=== PATIENT | female | born 1940 | race Caucasian/White ===

== ENCOUNTER 2019-01-26 09:47 | Inpatient (IN) | payer MEDICARE, OTHER ==
[~2019-01-26] VITALS: Ht 160 cm; Wt 79.1 kg
[~2019-01-26 09:47] MED LIST: ASCO500C15 PO; CARV-50 PO; DOCU100C40 PO; FAMO20TA8 PO; HYDR-3973 PO; LACT1CAP26 PO; LANTUS SQ; LISI-600 PO; NOVOLOG; PHEN-716 PO; SITA50TA PO
[2019-01-26] MEDS ORDERED: normal saline 1000ML IV soln IVB ONE (10:15)
[2019-01-26 10:45] LABS: BASOPHILS # (AUTO) 0.1 X10'3 (0-0.2); BASOPHILS % (AUTO) 1.2 % (0-1); EOSINOPHILS # (AUTO) 0.1 X10'3 (0-0.9); EOSINOPHILS % (AUTO) 1.1 % (0-6); HEMATOCRIT 38.1 % (35.0-45.0); HEMOGLOBIN 12.8 g/dl (12.0-16.0); LYMPHOCYTES # (AUTO) 1.6 X10'3 (1.1-4.8); LYMPHOCYTES % (AUTO) 19.4 % (21-51); MEAN CORPUSCULAR HEMOGLOBIN 29.2 PG (27.0-31.0); MEAN CORPUSCULAR HGB CONC 33.5 g/dL (33.0-36.5); MEAN CORPUSCULAR VOLUME 87.1 FL (78-98); MEAN PLATELET VOLUME 9.6 FL (7.4-10.4); MONOCYTES # (AUTO) 0.6 X10'3 (0-0.9); MONOCYTES % (AUTO) 7.4 % (2-12); NEUTROPHILS # (AUTO) 5.8 X10'3 (1.8-7.7); NEUTROPHILS % (AUTO) 70.9 % (42-75); PLATELET COUNT 316 X10'3 (140-440); RED BLOOD COUNT 4.38 X10'6 (4.20-5.60); RED CELL DISTRIBUTION WIDTH 14.1 % (11.5-14.5); WHITE BLOOD COUNT 8.2 X10'3 (4.5-11.0)
[2019-01-26 10:58] LABS: ALANINE AMINOTRANSFERASE 25 U/L (12-78); ALBUMIN 3.8 G/DL (3.4-5.0); ALKALINE PHOSPHATASE 53 IU/L (46-116); ANION GAP 11 (8-16); ASPARTATE AMINO TRANSFERASE 21 U/L (10-37); BILIRUBIN,TOTAL 0.5 MG/DL (0.1-1.0); BLOOD UREA NITROGEN 30 MG/DL (7-18); BUN/CREATININE RATIO 15.5 (6.6-38.0); CHLORIDE 99 MMOL/L (99-107); CREATININE 1.93 MG/DL (0.40-0.90); GLUCOSE 264 MG/DL (70-104); MAGNESIUM 1.7 MG/DL (1.5-2.4); PHOSPHORUS 3.8 MG/DL (2.3-4.5); POTASSIUM 4.2 MMOL/L (3.5-5.1); SODIUM 136 MMOL/L (135-145); TOTAL CARBON DIOXIDE 26.2 MMOL/L (24-32); TOTAL PROTEIN 7.6 G/DL (6.4-8.2); eGFR 25 ML/MIN
[2019-01-26 11:16] LABS: CLARITY,URINE CLOUDY (Clear); COLOR,URINE YELLOW (Yellow); GLUCOSE, URINE NEGATIVE (Neg); KETONES,URINE TRACE mg/dl (Neg); LEUKOCYTE ESTERASE ,URINE LARGE (Neg); NITRITES, URINE NEGATIVE (Neg); OCCULT BLOOD,URINE NEGATIVE (Neg); PROTEIN,URINE 30 mg/dl (Neg); UROBILINOGEN,URINE 0.2 E.U/dL (0.2-1.0)
[2019-01-26 11:17] LABS: UA COLLECTION TYPE CLN CATCH MIDSTREAM
[2019-01-26] MEDS ORDERED: aspirin 325mg tablet PO ONE (11:30)
[2019-01-26 11:38] LABS: WBC,URINE 30-50 /HPF (0-4)
[2019-01-26 11:39] LABS: RBC,URINE 0-2 /HPF (0-2)
[2019-01-26 11:40] LABS: SQUAMOUS EPITHELIAL CELL,UR MANY /LPF (FEW); WBC CLUMPS,URINE MODERATE /HPF (NEGATIVE)
[2019-01-26 11:43] LABS: MUCUS STRANDS NONE SEEN /LPF (Neg)
[2019-01-26] MEDS ORDERED: INSU100I31 PO (11:45)
[2019-01-26] MEDS ORDERED: ATOR20TA PO (11:45)
[2019-01-26] MEDS ORDERED: ASPI-1265 PO (11:45)
[2019-01-26] MEDS ORDERED: LISI40TA4 PO (11:45)
[2019-01-26] MEDS ORDERED: INSU100V13 SQ (11:45)
[2019-01-26] MEDS ORDERED: HYDR12.5 PO (11:45)
[2019-01-26 11:46] LABS: AMORPHOUS URATES 1+; TRANSITIONAL EPI CELLS,URINE MODERATE /HPF
[2019-01-26 11:47] LABS: BACTERIA,URINE 3+ /HPF (Neg)
[2019-01-26] MEDS ORDERED: acetaminophen 325mg tablet PO PRN ×2 (11:50)
[2019-01-26] MEDS ORDERED: potassium Cl 20 mEq SR tablet PO PRN ×2 (11:50)
[2019-01-26] MEDS ORDERED: magnesium 2GM in 50ml NS 50 ML IV PRN (11:50)
[2019-01-26] MEDS ORDERED: potassium Cl 40MEQ/NS 500ml 500 ML IV PRN ×2 (11:50)
[2019-01-26] MEDS ORDERED: ondansetron/PF 4mg/2ml inj IV PRN (11:50)
[2019-01-26] MEDS ORDERED: magnesium 4gm in 100ml NS 100 ML IV PRN (11:50)
[2019-01-26] MEDS ORDERED: CefTRIAXone/D5W-Rocephin 1gm 50 ML IV ONE (11:50)
[2019-01-26] MEDS ORDERED: magnesium Cl slow-release 64mg tablet PO PRN (11:50)
[2019-01-26] MEDS ORDERED: magnesium hydroxide 30ml (MOM) UD suspension PO PRN (11:50)
[2019-01-26] MEDS ORDERED: mag hydrox/Alum hydrox/simeth 30ml oral suspension PO PRN (11:50)
[2019-01-26] MEDS: K and/or MAG REPLACEMENT MC SCH (12:05)
[2019-01-26] MEDS: normal saline 1000ml 1,000 ML IV SCH ×2 (12:17→21:48)
--- NOTE | 2019-01-26 14:20 | NUR ---
Attempted to call report on to RN taking patient. Nurse has not yet been assigned to the pt, and they state they will return a call as soon as they are able.
[2019-01-26 15:00] VITALS: BP 137/63
[2019-01-26 18:00] VITALS: BP 138/63
[2019-01-26] MEDS ORDERED: glucagon, human recombinant 1mg kit SUBCUT PRN (18:15)
[2019-01-26] MEDS ORDERED: dextrose 50%-water 50ml dispensing syringe IV PRN ×2 (18:15)
[2019-01-26] MEDS ORDERED: MESSAGE TO PHARMACY PO ONE (18:15)
[2019-01-26] MEDS ORDERED: dextrose ORAL solution 15 GM/59 ML bottle PO PRN ×2 (18:15)
--- NOTE | 2019-01-26 18:40 | NUR ---
Report to Shaniqua KUMARI
[2019-01-26] MEDS ORDERED: insulin glargine (Lantus) pen - multi-dose SQ SCH (21:00)
[2019-01-26] MEDS ORDERED: temazepam 15mg capsule PO PRN (21:00)
[2019-01-26] MEDS: insulin glargine (Lantus) pen - multi-dose SQ SCH (21:01)
[2019-01-26] MEDS: insulin Lispro (HumaLOG) vial - multi-dose SQ SCH (21:03)
[2019-01-26 21:12] LABS: CLARITY,URINE SLIGHTLY CLOUDY (Clear); COLOR,URINE YELLOW (Yellow); GLUCOSE, URINE NEGATIVE (Neg); KETONES,URINE NEGATIVE (Neg); LEUKOCYTE ESTERASE ,URINE SMALL (Neg); NITRITES, URINE NEGATIVE (Neg); OCCULT BLOOD,URINE NEGATIVE (Neg); PH,URINE 5.5 (4.8-8.0); PROTEIN,URINE NEGATIVE (Neg); UROBILINOGEN,URINE 0.2 E.U/dL (0.2-1.0)
[2019-01-26 21:13] LABS: UA COLLECTION TYPE VOIDED
[2019-01-26 21:18] LABS: BACTERIA,URINE 4+ /HPF (Neg); SQUAMOUS EPITHELIAL CELL,UR MODERATE /LPF (FEW)
[2019-01-26 21:19] LABS: RBC,URINE 0-2 /HPF (0-2)
[2019-01-26 22:00] VITALS: BP_SYST 129; BP_SYST 132; BP_SYST 146; BP_DIAS 52; BP_DIAS 67
[2019-01-27] VITALS (7 sets, daily range): BP systolic 114–159; BP diastolic 50–72
[2019-01-27] MEDS: normal saline 1000ml 1,000 ML IV SCH ×2 (03:59→16:58)
[2019-01-27 05:45] LABS: HEMATOCRIT 33.5 % (35.0-45.0); HEMOGLOBIN 11.3 g/dl (12.0-16.0); MEAN CORPUSCULAR HEMOGLOBIN 29.5 PG (27.0-31.0); MEAN CORPUSCULAR HGB CONC 33.7 g/dL (33.0-36.5); MEAN CORPUSCULAR VOLUME 87.7 FL (78-98); MEAN PLATELET VOLUME 9.6 FL (7.4-10.4); PLATELET COUNT 244 X10'3 (140-440); RED BLOOD COUNT 3.82 X10'6 (4.20-5.60); RED CELL DISTRIBUTION WIDTH 14.1 % (11.5-14.5); WHITE BLOOD COUNT 6.7 X10'3 (4.5-11.0)
[2019-01-27 05:52] LABS: ALBUMIN 3.2 G/DL (3.4-5.0); ANION GAP 6 (8-16); BLOOD UREA NITROGEN 33 MG/DL (7-18); BUN/CREATININE RATIO 21.9 (6.6-38.0); CALCIUM 9.3 MG/DL (8.5-10.1); CHLORIDE 107 MMOL/L (99-107); CHOL/HDL RATIO 2.7 (0.00-4.99); CHOLESTEROL 126 MG/DL (0-200); CREATININE 1.51 MG/DL (0.40-0.90); GLUCOSE 110 MG/DL (70-104); HDL CHOLESTEROL 47 MG/DL (35-60); LDL CHOLESTEROL 70 MG/DL (50-100); MAGNESIUM 1.6 MG/DL (1.5-2.4); PHOSPHORUS 3.8 MG/DL (2.3-4.5); POTASSIUM 3.9 MMOL/L (3.5-5.1); SODIUM 140 MMOL/L (135-145); TOTAL CARBON DIOXIDE 26.6 MMOL/L (24-32); TRIGLYCERIDES 116 MG/DL (20-135); eGFR 33 ML/MIN
--- NOTE | 2019-01-27 07:04 | NUR ---
Patient in room ORTHO 4024. I have received report from Shaniqua KUMARI and had the opportunity to ask questions and assume patient care.
[2019-01-27] MEDS ORDERED: insulin Lispro (HumaLOG) vial - multi-dose SQ SCH (08:00)
[2019-01-27] MEDS: K and/or MAG REPLACEMENT MC SCH (08:00)
[2019-01-27] MEDS ORDERED: INSULIN ASPART 4 UNIT SQ SCH (08:00)
[2019-01-27] MEDS: insulin Lispro (HumaLOG) vial - multi-dose SQ SCH (08:54)
[2019-01-27] MEDS: CefTRIAXone/D5W-Rocephin 1gm 50 ML IV SCH (08:57)
[2019-01-27] MEDS: aspirin 325mg tablet PO SCH (08:57)
[2019-01-27] MEDS: atorvastatin 20mg tablet PO SCH (08:57)
--- NOTE | 2019-01-27 12:23 | NUR ---
DM Consult: Pt admit w/ dizziness hx T2DM A1C 9.1. Pt unable to wake during RD visit; written DM ed w/ RD contact information left at bedside. Pt PO 100% carb controlled/heart healthy meals meeting needs. No BM yet this admit. Will continue to monitor. Rec: 1. continue carb controlled/heart healthy diet 2. wt per rx Addendum: 01/27/19 at [address] Amended: Links added.
--- NOTE | 2019-01-27 18:30 | NUR ---
Problems reprioritized. Patient report given, questions answered & plan of care reviewed with Shaniqua KUMARI.
[2019-01-27] MEDS: lactobacillus rhamnosus 10,000 MMU CELLS/CAPSULE PO SCH (19:50)
[2019-01-27] MEDS: insulin glargine (Lantus) pen - multi-dose SQ SCH (21:49)
[2019-01-27] MEDS ORDERED: Melatonin 3mg tablet PO PRN (22:00)
--- NOTE | 2019-01-27 23:12 | NUR ---
pt requested sleep aid. pt refused to try christina louie ordered melatonin. pt agreed to try.
[2019-01-28 02:03] VITALS: BP 154/72
[2019-01-28] MEDS: normal saline 1000ml 1,000 ML IV SCH (03:04)
[2019-01-28 05:54] LABS: HEMATOCRIT 34.1 % (35.0-45.0); HEMOGLOBIN 11.2 g/dl (12.0-16.0); MEAN CORPUSCULAR HEMOGLOBIN 29.1 PG (27.0-31.0); MEAN CORPUSCULAR HGB CONC 32.9 g/dL (33.0-36.5); MEAN CORPUSCULAR VOLUME 88.5 FL (78-98); MEAN PLATELET VOLUME 9.7 FL (7.4-10.4); PLATELET COUNT 258 X10'3 (140-440); RED BLOOD COUNT 3.86 X10'6 (4.20-5.60); RED CELL DISTRIBUTION WIDTH 14.2 % (11.5-14.5); WHITE BLOOD COUNT 7.2 X10'3 (4.5-11.0)
--- NOTE | 2019-01-28 05:55 | NUR ---
reported to days. noted pt anticipates discharge today. will need restart of BP meds.
[2019-01-28 05:58] LABS: ALBUMIN 3.3 G/DL (3.4-5.0); ANION GAP 7 (8-16); BLOOD UREA NITROGEN 32 MG/DL (7-18); BUN/CREATININE RATIO 26.9 (6.6-38.0); CHLORIDE 109 MMOL/L (99-107); CREATININE 1.19 MG/DL (0.40-0.90); GLUCOSE 114 MG/DL (70-104); MAGNESIUM 1.6 MG/DL (1.5-2.4); PHOSPHORUS 3.4 MG/DL (2.3-4.5); POTASSIUM 4.4 MMOL/L (3.5-5.1); SODIUM 143 MMOL/L (135-145); TOTAL CARBON DIOXIDE 26.8 MMOL/L (24-32); eGFR 44 ML/MIN
[2019-01-28 06:00] VITALS: BP 154/72
--- NOTE | 2019-01-28 06:20 | NUR ---
Patient in room ORTHO 4024. I have received report from Shaniqua KUMARI and had the opportunity to ask questions and assume patient care.
[2019-01-28] MEDS: lactobacillus rhamnosus 10,000 MMU CELLS/CAPSULE PO SCH (07:33)
[2019-01-28] MEDS: aspirin 325mg tablet PO SCH (07:33)
[2019-01-28] MEDS: CefTRIAXone/D5W-Rocephin 1gm 50 ML IV SCH (07:33)
[2019-01-28] MEDS: atorvastatin 20mg tablet PO SCH (07:33)
[2019-01-28 08:00] VITALS: BP_SYST 137; BP_SYST 146; BP_SYST 155; BP_SYST 166; BP_DIAS 50; BP_DIAS 59; BP_DIAS 61; BP_DIAS 79
[2019-01-28] MEDS: K and/or MAG REPLACEMENT MC SCH (08:00)
[2019-01-28] MEDS ORDERED: MELA3TAB PO (09:21)
[2019-01-28] MEDS ORDERED: CEFD300C3 PO (09:21)
[2019-01-28] MEDS ORDERED: LACT1CAP26 PO (09:21)
[2019-01-28] MEDS ORDERED: ATOR20TA66 PO (09:21)
[2019-01-28 10:00] VITALS: BP 155/59
[2019-01-28] MEDS ORDERED: ASPI1CPM9 PO (10:53)
--- NOTE | 2019-01-28 12:00 | NUR ---
Patient stable for discharge home today. All discharge instructions given to patient and new prescriptions called into [facility].
== END 2019-01-28 12:00 | disposition home health service (06) | DRG 64 ==
LOC: ER 09:47 → ED HOLD 11:48 → ORTHO 4S 15:20 → OBSVTOIN 19:02
PROVIDERS: ADMIT Family Medicine; ATTEND Family Medicine
DX: I63.9 Cerebral infarction, unspecified (principal); N17.0 Acute kidney failure with tubular necrosis; N39.0 Urinary tract infection, site not specified; E11.22 Type 2 diabetes mellitus with diabetic chronic kidney disease; E11.65 Type 2 diabetes mellitus with hyperglycemia; I12.9 Hypertensive chronic kidney disease with stage 1 through stage 4 chronic kidney disease, or unspecified chronic kidney disease; E78.5 Hyperlipidemia, unspecified; I25.10 Atherosclerotic heart disease of native coronary artery without angina pectoris; M54.30 Sciatica, unspecified side; M21.371 Foot drop, right foot; N18.9 Chronic kidney disease, unspecified; Z90.710 Acquired absence of both cervix and uterus; Z95.1 Presence of aortocoronary bypass graft; I25.2 Old myocardial infarction; Z79.82 Long term (current) use of aspirin; Z79.4 Long term (current) use of insulin; Z79.899 Other long term (current) drug therapy
CPT/HCPCS: 36415; 70450; 70544; 70551; 71045; 80048; 80053; 80061; 81001; 82948; 83036; 83735; 84100; 84484; 85025; 85027; 85610; 87070; 87088; 93005; 93306; 93880; 96365; 97110; 97116; 97161; 97530; 99285; G0378; J0696; J1815; J7030

== ENCOUNTER 2019-02-09 02:06 | Emergency (ER) | payer MEDICARE, OTHER ==
[~2019-02-09] VITALS: Ht 160 cm; Wt 78.2 kg
[~2019-02-09 02:06] MED LIST changes: -ASCO500C15 PO; +ASPI1CPM9 PO; +ATOR20TA66 PO; -DOCU100C40 PO; -FAMO20TA8 PO; -HYDR-3973 PO; +HYDR12.5 PO; +INSU100I31 PO; +INSU100V13 SQ; -LANTUS SQ; -LISI-600 PO; +LISI40TA4 PO; +MELA3TAB PO; -NOVOLOG; -PHEN-716 PO
[2019-02-09] MEDS ORDERED: TRAM50TA2 PO (02:32)
[2019-02-09] MEDS ORDERED: HYDROcodone/acetaminophen 5mg/325mg tablet PO ONE (02:35)
[2019-02-09 03:31] VITALS: BP 142/67
== END 2019-02-09 03:37 | disposition home or self-care (01) ==
LOC: ER 02:06
DX: M79.651 Pain in right thigh (principal); I25.10 Atherosclerotic heart disease of native coronary artery without angina pectoris; I25.2 Old myocardial infarction; E11.9 Type 2 diabetes mellitus without complications; Z90.710 Acquired absence of both cervix and uterus; Z95.1 Presence of aortocoronary bypass graft; Z79.82 Long term (current) use of aspirin; Z79.4 Long term (current) use of insulin; W01.0XXA Fall on same level from slipping, tripping and stumbling without subsequent striking against object, initial encounter; Y93.89 Activity, other specified; Y92.89 Other specified places as the place of occurrence of the external cause; Y99.8 Other external cause status
CPT/HCPCS: 99283

== ENCOUNTER 2019-02-24 20:45 | Inpatient (IN) | payer MEDICARE, OTHER | END 2019-02-26 13:13 | disposition home or self-care (01) | LOC: ER 20:45 → ORTHO 4S 02-25 03:13 | DX: N17.9 Acute kidney failure, unspecified (principal); N39.0 Urinary tract infection, site not specified; Z86.73 Personal history of transient ischemic attack (TIA), and cerebral infarction without residual deficits ==

== ENCOUNTER 2019-03-08 20:39 | Emergency (ER) | payer MEDICARE, OTHER ==
[~2019-03-08] VITALS: Ht 160 cm; Wt 75.0 kg
[~2019-03-08 20:39] MED LIST changes: -ASPI1CPM9 PO; +CEFD300C3 PO; +TRAM50TA2 PO
[2019-03-08 22:35] LABS: CLARITY,URINE CLEAR (Clear); COLOR,URINE YELLOW (Yellow); GLUCOSE, URINE 100 mg/dl (Neg); KETONES,URINE NEGATIVE (Neg); LEUKOCYTE ESTERASE ,URINE TRACE (Neg); NITRITES, URINE NEGATIVE (Neg); OCCULT BLOOD,URINE NEGATIVE (Neg); PH,URINE 5.5 (4.8-8.0); PROTEIN,URINE NEGATIVE (Neg); UROBILINOGEN,URINE 0.2 E.U/dL (0.2-1.0)
[2019-03-08 22:39] LABS: UA COLLECTION TYPE STRAIGHT CATH
[2019-03-08 22:44] LABS: BACTERIA,URINE NONE SEEN /HPF (Neg); RBC,URINE 0-2 /HPF (0-2); SQUAMOUS EPITHELIAL CELL,UR FEW /LPF (FEW); WBC CLUMPS,URINE FEW /HPF (NEGATIVE)
[2019-03-08 23:13] VITALS: BP 148/85
[2019-03-08] MEDS ORDERED: CIPR-259 PO (23:17)
== END 2019-03-08 23:38 | disposition home or self-care (01) ==
LOC: ER 20:40
DX: R33.9 Retention of urine, unspecified (principal); N39.0 Urinary tract infection, site not specified; I25.10 Atherosclerotic heart disease of native coronary artery without angina pectoris; I25.2 Old myocardial infarction; E11.9 Type 2 diabetes mellitus without complications; Z95.1 Presence of aortocoronary bypass graft; Z90.710 Acquired absence of both cervix and uterus; Z98.890 Other specified postprocedural states; Z79.899 Other long term (current) drug therapy; Z79.4 Long term (current) use of insulin
CPT/HCPCS: 51702; 81001; 87077; 87088; 87186; 99284

== ENCOUNTER 2019-03-10 20:20 | Emergency (ER) | payer MEDICARE, OTHER ==
[~2019-03-10] VITALS: Ht 160 cm; Wt 69.0 kg
[~2019-03-10 20:20] MED LIST changes: +CIPR-259 PO
--- NOTE | 2019-03-10 21:07 | NUR ---
PT OFFERED WARM BLANKET PT DENIED BLANKET AT THIS TIME.
[2019-03-10] MEDS ORDERED: normal saline 1000ml 1,000 ML IV ONE (21:45)
[2019-03-10 22:05] LABS: BASOPHILS # (AUTO) 0.1 X10'3 (0-0.2); BASOPHILS % (AUTO) 0.8 % (0-1); EOSINOPHILS # (AUTO) 0.1 X10'3 (0-0.9); EOSINOPHILS % (AUTO) 1.6 % (0-6); HEMATOCRIT 32.7 % (35.0-45.0); HEMOGLOBIN 11.1 g/dl (12.0-16.0); LYMPHOCYTES # (AUTO) 2.3 X10'3 (1.1-4.8); LYMPHOCYTES % (AUTO) 24.4 % (21-51); MEAN CORPUSCULAR HEMOGLOBIN 30.2 PG (27.0-31.0); MEAN CORPUSCULAR VOLUME 88.7 FL (78-98); MONOCYTES # (AUTO) 0.8 X10'3 (0-0.9); MONOCYTES % (AUTO) 8.9 % (2-12); NEUTROPHILS % (AUTO) 64.3 % (42-75); PLATELET COUNT 247 X10'3 (140-440); RED BLOOD COUNT 3.68 X10'6 (4.20-5.60); RED CELL DISTRIBUTION WIDTH 14.2 % (11.5-14.5); WHITE BLOOD COUNT 9.3 X10'3 (4.5-11.0)
[2019-03-10 22:18] LABS: ALANINE AMINOTRANSFERASE 24 U/L (12-78); ALBUMIN 3.6 G/DL (3.4-5.0); ALBUMIN/GLOBULIN RATIO 1.1 (1.1-1.5); ALKALINE PHOSPHATASE 56 IU/L (46-116); ANION GAP 6 (8-16); ASPARTATE AMINO TRANSFERASE 18 U/L (10-37); BILIRUBIN,TOTAL 0.3 MG/DL (0.1-1.0); BLOOD UREA NITROGEN 23 MG/DL (7-18); BUN/CREATININE RATIO 13.8 (6.6-38.0); CALCIUM 9.8 MG/DL (8.5-10.1); CHLORIDE 94 MMOL/L (99-107); CREATININE 1.67 MG/DL (0.40-0.90); GLUCOSE 175 MG/DL (70-104); POTASSIUM 4.5 MMOL/L (3.5-5.1); SODIUM 127 MMOL/L (135-145); TOTAL CARBON DIOXIDE 27.3 MMOL/L (24-32); TOTAL PROTEIN 6.9 G/DL (6.4-8.2); eGFR 30 ML/MIN
[2019-03-10 22:27] LABS: CLARITY,URINE CLEAR (Clear); COLOR,URINE YELLOW (Yellow); GLUCOSE, URINE NEGATIVE (Neg); KETONES,URINE NEGATIVE (Neg); LEUKOCYTE ESTERASE ,URINE NEGATIVE (Neg); NITRITES, URINE NEGATIVE (Neg); OCCULT BLOOD,URINE NEGATIVE (Neg); PROTEIN,URINE NEGATIVE (Neg); UROBILINOGEN,URINE 0.2 E.U/dL (0.2-1.0)
[2019-03-10 22:39] LABS: UA COLLECTION TYPE OTHER
[2019-03-10 23:36] VITALS: BP 144/89
== END 2019-03-10 23:37 | disposition home or self-care (01) ==
LOC: ER 20:20
DX: E86.0 Dehydration (principal); R33.9 Retention of urine, unspecified; I25.10 Atherosclerotic heart disease of native coronary artery without angina pectoris; I25.2 Old myocardial infarction; E11.9 Type 2 diabetes mellitus without complications; Z95.1 Presence of aortocoronary bypass graft; Z90.710 Acquired absence of both cervix and uterus; Z98.890 Other specified postprocedural states; Z79.4 Long term (current) use of insulin; Z79.899 Other long term (current) drug therapy
CPT/HCPCS: 36415; 80053; 81003; 85025; 99284; J7030; P9612

== ENCOUNTER 2019-04-18 21:23 | Emergency (ER) | payer MEDICARE, OTHER ==
[~2019-04-18] VITALS: Ht 160 cm; Wt 63.3 kg
[~2019-04-18 21:23] MED LIST changes: -CEFD300C3 PO; -CIPR-259 PO; -TRAM50TA2 PO
[2019-04-18 22:37] VITALS: BP 183/81
[2019-04-18 23:39] LABS: CLARITY,URINE SLIGHTLY CLOUDY (Clear); COLOR,URINE YELLOW (Yellow); GLUCOSE, URINE NEGATIVE (Neg); KETONES,URINE NEGATIVE (Neg); LEUKOCYTE ESTERASE ,URINE LARGE (Neg); NITRITES, URINE NEGATIVE (Neg); OCCULT BLOOD,URINE NEGATIVE (Neg); PH,URINE 6.5 (4.8-8.0); PROTEIN,URINE NEGATIVE (Neg); UROBILINOGEN,URINE 0.2 E.U/dL (0.2-1.0)
[2019-04-18 23:44] LABS: UA COLLECTION TYPE CLN CATCH MIDSTREAM
[2019-04-18 23:45] LABS: BACTERIA,URINE FEW /HPF (Neg); RBC,URINE NONE SEEN /HPF (0-2); RENAL CELLS, URINE FEW /HPF; SQUAMOUS EPITHELIAL CELL,UR FEW /LPF (FEW)
[2019-04-19] MEDS ORDERED: NITR100C6 PO (00:02)
== END 2019-04-19 00:11 | disposition home or self-care (01) ==
LOC: ER 21:23
DX: N39.0 Urinary tract infection, site not specified (principal); I25.10 Atherosclerotic heart disease of native coronary artery without angina pectoris; I25.2 Old myocardial infarction; E11.9 Type 2 diabetes mellitus without complications; Z79.4 Long term (current) use of insulin; Z79.899 Other long term (current) drug therapy; Z86.73 Personal history of transient ischemic attack (TIA), and cerebral infarction without residual deficits; Z90.710 Acquired absence of both cervix and uterus; Z95.1 Presence of aortocoronary bypass graft; Z98.890 Other specified postprocedural states
CPT/HCPCS: 81001; 87088; 99284

== ENCOUNTER 2020-02-10 12:49 | Emergency (ER) | payer MEDICARE, OTHER ==
[~2020-02-10] VITALS: Ht 165.1 cm; Wt 81.7 kg
[~2020-02-10 12:49] MED LIST changes: -MELA3TAB PO; +MELA3TAB39 PO; +NITR100C6 PO
[2020-02-10 14:12] LABS: BASOPHILS # (AUTO) 0.1 X10'3 (0-0.2); EOSINOPHILS # (AUTO) 0.1 X10'3 (0-0.9); EOSINOPHILS % (AUTO) 1.4 % (0-6); HEMATOCRIT 34.1 % (35.0-45.0); HEMOGLOBIN 11.6 g/dl (12.0-16.0); LYMPHOCYTES # (AUTO) 1.5 X10'3 (1.1-4.8); LYMPHOCYTES % (AUTO) 14.5 % (21-51); MEAN CORPUSCULAR HEMOGLOBIN 29.7 PG (27.0-31.0); MEAN CORPUSCULAR VOLUME 87.5 FL (78-98); MEAN PLATELET VOLUME 10.2 FL (7.4-10.4); MONOCYTES # (AUTO) 0.8 X10'3 (0-0.9); MONOCYTES % (AUTO) 7.7 % (2-12); NEUTROPHILS # (AUTO) 7.5 X10'3 (1.8-7.7); NEUTROPHILS % (AUTO) 75.4 % (42-75); PLATELET COUNT 214 X10'3 (140-440); RED CELL DISTRIBUTION WIDTH 13.1 % (11.5-14.5)
[2020-02-10 14:19] LABS: COLOR,URINE YELLOW (Yellow); GLUCOSE, URINE 250 mg/dl (Neg); KETONES,URINE NEGATIVE (Neg); LEUKOCYTE ESTERASE ,URINE LARGE (Neg); NITRITES, URINE NEGATIVE (Neg); OCCULT BLOOD,URINE TRACE-INTACT (Neg); PROTEIN,URINE NEGATIVE (Neg); UROBILINOGEN,URINE 0.2 E.U/dL (0.2-1.0)
[2020-02-10 14:21] LABS: CLARITY,URINE CLOUDY (Clear); UA COLLECTION TYPE CLN CATCH MIDSTREAM
[2020-02-10 14:22] LABS: ALANINE AMINOTRANSFERASE 22 U/L (12-78); ALBUMIN 3.4 G/DL (3.4-5.0); ALBUMIN/GLOBULIN RATIO 0.9 (1.1-1.5); ALKALINE PHOSPHATASE 72 IU/L (46-116); ANION GAP 7 (8-16); ASPARTATE AMINO TRANSFERASE 27 U/L (10-37); BILIRUBIN,TOTAL 0.3 MG/DL (0.1-1.0); BLOOD UREA NITROGEN 38 MG/DL (7-18); BUN/CREATININE RATIO 23.2 (6.6-38.0); CALCIUM 8.9 MG/DL (8.5-10.1); CHLORIDE 98 MMOL/L (99-107); CREATININE 1.64 MG/DL (0.40-0.90); GLUCOSE 260 MG/DL (70-104); POTASSIUM 4.7 MMOL/L (3.5-5.1); SODIUM 130 MMOL/L (135-145); TOTAL CARBON DIOXIDE 24.7 MMOL/L (24-32); TOTAL PROTEIN 7.2 G/DL (6.4-8.2); eGFR 30 ML/MIN
[2020-02-10 14:23] VITALS: BP 150/87
[2020-02-10 14:25] LABS: MUCUS STRANDS FEW /LPF (Neg); RBC,URINE 0-2 /HPF (0-2); SQUAMOUS EPITHELIAL CELL,UR MODERATE /LPF (FEW)
[2020-02-10 14:26] LABS: BACTERIA,URINE 3+ /HPF (Neg); TRANSITIONAL EPI CELLS,URINE FEW /HPF; WBC CLUMPS,URINE MODERATE /HPF (NEGATIVE)
[2020-02-10 14:29] LABS: WBC,URINE 30-50 /HPF (0-4)
[2020-02-10] MEDS ORDERED: CEPH-572 PO (15:16)
== END 2020-02-10 15:31 | disposition home or self-care (01) ==
LOC: ER 12:50
DX: N39.0 Urinary tract infection, site not specified (principal); I25.10 Atherosclerotic heart disease of native coronary artery without angina pectoris; I25.2 Old myocardial infarction; E11.9 Type 2 diabetes mellitus without complications; Z95.1 Presence of aortocoronary bypass graft; Z86.73 Personal history of transient ischemic attack (TIA), and cerebral infarction without residual deficits; Z90.710 Acquired absence of both cervix and uterus; Z98.890 Other specified postprocedural states; Z79.4 Long term (current) use of insulin; Z79.899 Other long term (current) drug therapy
CPT/HCPCS: 36415; 80053; 81001; 85025; 85610; 87077; 87088; 87186; 99284

== ENCOUNTER 2020-03-03 07:47 | Emergency (ER) | payer MEDICARE, OTHER ==
[~2020-03-03] VITALS: Ht 160 cm; Wt 175.0 kg
[2020-03-03 08:15] LABS: CLARITY,URINE SLIGHTLY CLOUDY (Clear); COLOR,URINE YELLOW (Yellow); GLUCOSE, URINE 100 mg/dl (Neg); KETONES,URINE NEGATIVE (Neg); LEUKOCYTE ESTERASE ,URINE LARGE (Neg); NITRITES, URINE NEGATIVE (Neg); OCCULT BLOOD,URINE TRACE-INTACT (Neg); PROTEIN,URINE TRACE mg/dl (Neg); UROBILINOGEN,URINE 0.2 E.U/dL (0.2-1.0)
--- NOTE | 2020-03-03 08:19 | NUR ---
Pt's son Min called for update on status which was provided after obtaiing verbal consent from pt. Phone provided to pt who will call son when diagnostic results known.
[2020-03-03 08:20] LABS: UA COLLECTION TYPE CLN CATCH MIDSTREAM
[2020-03-03 08:33] LABS: BACTERIA,URINE FEW /HPF (Neg); RBC,URINE 0-2 /HPF (0-2); SQUAMOUS EPITHELIAL CELL,UR MANY /LPF (FEW); WBC,URINE 20-30 /HPF (0-4)
[2020-03-03 08:34] LABS: MUCUS STRANDS NONE SEEN /LPF (Neg); TRANSITIONAL EPI CELLS,URINE FEW /HPF
[2020-03-03] MEDS ORDERED: pantoprazole 40 MG vial IV ONE (08:40)
[2020-03-03] MEDS ORDERED: normal saline 1000ML IV soln IVB ONE (08:40)
[2020-03-03 09:07] LABS: BASOPHILS # (AUTO) 0.1 X10'3 (0-0.2); BASOPHILS % (AUTO) 0.9 % (0-1); EOSINOPHILS # (AUTO) 0.1 X10'3 (0-0.9); EOSINOPHILS % (AUTO) 1.7 % (0-6); HEMATOCRIT 34.3 % (35.0-45.0); HEMOGLOBIN 11.5 g/dl (12.0-16.0); LYMPHOCYTES % (AUTO) 11.7 % (21-51); MEAN CORPUSCULAR HEMOGLOBIN 29.2 PG (27.0-31.0); MEAN CORPUSCULAR HGB CONC 33.6 g/dL (33.0-36.5); MEAN CORPUSCULAR VOLUME 86.8 FL (78-98); MEAN PLATELET VOLUME 9.5 FL (7.4-10.4); MONOCYTES # (AUTO) 0.6 X10'3 (0-0.9); MONOCYTES % (AUTO) 6.7 % (2-12); NEUTROPHILS # (AUTO) 6.8 X10'3 (1.8-7.7); PLATELET COUNT 245 X10'3 (140-440); RED BLOOD COUNT 3.94 X10'6 (4.20-5.60); WHITE BLOOD COUNT 8.5 X10'3 (4.5-11.0)
[2020-03-03 09:35] LABS: ALANINE AMINOTRANSFERASE 18 U/L (12-78); ALBUMIN 3.3 G/DL (3.4-5.0); ALBUMIN/GLOBULIN RATIO 0.9 (1.1-1.5); ALKALINE PHOSPHATASE 71 IU/L (46-116); ANION GAP 7 (8-16); ASPARTATE AMINO TRANSFERASE 18 U/L (10-37); BILIRUBIN,TOTAL 0.3 MG/DL (0.1-1.0); BLOOD UREA NITROGEN 31 MG/DL (7-18); BUN/CREATININE RATIO 23.5 (6.6-38.0); CALCIUM 9.1 MG/DL (8.5-10.1); CHLORIDE 95 MMOL/L (99-107); CREATININE 1.32 MG/DL (0.40-0.90); GLUCOSE 201 MG/DL (70-104); LIPASE 133 U/L (73-393); POTASSIUM 4.5 MMOL/L (3.5-5.1); SODIUM 127 MMOL/L (135-145); TOTAL CARBON DIOXIDE 24.7 MMOL/L (24-32); TOTAL PROTEIN 6.9 G/DL (6.4-8.2); eGFR 39 ML/MIN
--- NOTE | 2020-03-03 10:00 | NUR ---
Pt to CT scan.
--- NOTE | 2020-03-03 10:24 | NUR ---
Back from CT scan. Sips of liquids PO given to pt. No N/V, no pain.
[2020-03-03] MEDS ORDERED: PANT-47 PO (11:46)
[2020-03-03 11:54] VITALS: BP 143/76
== END 2020-03-03 11:57 | disposition home or self-care (01) ==
LOC: ER 07:47
DX: R10.13 Epigastric pain (principal); R10.12 Left upper quadrant pain; I25.10 Atherosclerotic heart disease of native coronary artery without angina pectoris; I25.2 Old myocardial infarction; E11.9 Type 2 diabetes mellitus without complications; Z86.73 Personal history of transient ischemic attack (TIA), and cerebral infarction without residual deficits; Z98.890 Other specified postprocedural states; Z95.1 Presence of aortocoronary bypass graft; Z90.710 Acquired absence of both cervix and uterus; Z79.899 Other long term (current) drug therapy; Z79.4 Long term (current) use of insulin
CPT/HCPCS: 36415; 71045; 74176; 80053; 81001; 82948; 83690; 84484; 85025; 93005; 96374; 99285; C9113; J7030

== ENCOUNTER 2021-05-24 10:14 | Emergency (ER) | payer MEDICARE, OTHER ==
[~2021-05-24] VITALS: Ht 160 cm; Wt 61.2 kg
[~2021-05-24 10:14] MED LIST changes: +ASPI-1071 PO; -ATOR20TA66 PO; +ATOR40TA72 PO; -CARV-50 PO; +CARV6.253 PO; -HYDR12.5 PO; +LISI40TA13 PO; -LISI40TA4 PO; +MAGN400C PO; -MELA3TAB39 PO; +NITR0.4T51 SL; -NITR100C6 PO
[2021-05-24 12:51] LABS: CLARITY,URINE CLOUDY (Clear); COLOR,URINE YELLOW (Yellow); GLUCOSE, URINE NEGATIVE (Neg); KETONES,URINE NEGATIVE (Neg); LEUKOCYTE ESTERASE ,URINE LARGE (Neg); NITRITES, URINE NEGATIVE (Neg); OCCULT BLOOD,URINE LARGE (Neg); PROTEIN,URINE 30 mg/dl (Neg); UROBILINOGEN,URINE 0.2 E.U/dL (0.2-1.0)
[2021-05-24 12:57] LABS: UA COLLECTION TYPE VOIDED
[2021-05-24 12:59] LABS: BACTERIA,URINE 3+ /HPF (Neg); MUCUS STRANDS NONE SEEN /LPF (Neg); RBC,URINE 20-50 /HPF (0-2); SQUAMOUS EPITHELIAL CELL,UR MANY /LPF (FEW); TRANSITIONAL EPI CELLS,URINE MODERATE /HPF; WBC,URINE TNTC /HPF (0-4)
[2021-05-24] MEDS ORDERED: CEPH-585 PO (14:22)
[2021-05-24 14:57] VITALS: BP 123/67
== END 2021-05-24 14:59 | disposition home or self-care (01) ==
LOC: ER 10:15
DX: N39.0 Urinary tract infection, site not specified (principal); I25.10 Atherosclerotic heart disease of native coronary artery without angina pectoris; I25.2 Old myocardial infarction; Z86.73 Personal history of transient ischemic attack (TIA), and cerebral infarction without residual deficits; Z98.890 Other specified postprocedural states; Z95.5 Presence of coronary angioplasty implant and graft; Z90.710 Acquired absence of both cervix and uterus; Z79.82 Long term (current) use of aspirin; Z79.4 Long term (current) use of insulin; Z79.899 Other long term (current) drug therapy
CPT/HCPCS: 81001; 99283

== ENCOUNTER 2021-10-14 16:14 | Inpatient (IN) | payer MEDICARE, OTHER ==
[~2021-10-14] VITALS: Ht 167.6 cm; Wt 75.9 kg
[~2021-10-14 16:14] MED LIST changes: +CEPH-585 PO
[2021-10-14] MEDS ORDERED: normal saline 1000ML IV soln IVB ONE (19:35)
--- NOTE | 2021-10-14 19:50 | NUR ---
ATTEMPT EKG, PT NOT IN ROOM, AT CT.
[2021-10-14 20:18] LABS: BASOPHILS # (AUTO) 0.1 X10'3 (0-0.2); BASOPHILS % (AUTO) 0.7 % (0-1); EOSINOPHILS % (AUTO) 0.2 % (0-6); HEMATOCRIT 36.2 % (35.0-45.0); HEMOGLOBIN 11.7 g/dl (12.0-16.0); LYMPHOCYTES # (AUTO) 1.2 X10'3 (1.1-4.8); LYMPHOCYTES % (AUTO) 10.4 % (21-51); MEAN CORPUSCULAR HEMOGLOBIN 28.4 PG (27.0-31.0); MEAN CORPUSCULAR HGB CONC 32.3 g/dL (33.0-36.5); MEAN CORPUSCULAR VOLUME 87.8 FL (78-98); MEAN PLATELET VOLUME 9.8 FL (7.4-10.4); MONOCYTES # (AUTO) 0.8 X10'3 (0-0.9); NEUTROPHILS # (AUTO) 9.5 X10'3 (1.8-7.7); NEUTROPHILS % (AUTO) 81.7 % (42-75); PLATELET COUNT 278 X10'3 (140-440); RED BLOOD COUNT 4.13 X10'6 (4.20-5.60); RED CELL DISTRIBUTION WIDTH 14.3 % (11.5-14.5); WHITE BLOOD COUNT 11.6 X10'3 (4.5-11.0)
[2021-10-14 20:29] LABS: ALANINE AMINOTRANSFERASE 32 U/L (12-78); ALBUMIN 3.6 G/DL (3.4-5.0); ALBUMIN/GLOBULIN RATIO 0.9 (1.1-1.5); ALKALINE PHOSPHATASE 77 IU/L (46-116); ANION GAP 12 (8-16); ASPARTATE AMINO TRANSFERASE 26 U/L (10-37); BILIRUBIN,TOTAL 0.4 MG/DL (0.1-1.0); BLOOD UREA NITROGEN 42 MG/DL (7-18); BUN/CREATININE RATIO 25.9 (6.6-38.0); CALCIUM 9.8 MG/DL (8.5-10.1); CHLORIDE 102 MMOL/L (99-107); CREATININE 1.62 MG/DL (0.40-0.90); GLUCOSE 356 MG/DL (70-104); POTASSIUM 4.6 MMOL/L (3.5-5.1); SODIUM 139 MMOL/L (135-145); TOTAL CARBON DIOXIDE 25.4 MMOL/L (24-32); TOTAL PROTEIN 7.5 G/DL (6.4-8.2); eGFR 30 ML/MIN
[2021-10-14 20:35] LABS: CLARITY,URINE CLEAR (Clear); COLOR,URINE YELLOW (Yellow); GLUCOSE, URINE >=1000 mg/dl (Neg); KETONES,URINE TRACE mg/dl (Neg); LEUKOCYTE ESTERASE ,URINE NEGATIVE (Neg); NITRITES, URINE NEGATIVE (Neg); OCCULT BLOOD,URINE SMALL (Neg); PROTEIN,URINE 100 mg/dl (Neg); UROBILINOGEN,URINE 0.2 E.U/dL (0.2-1.0)
[2021-10-14 21:00] LABS: UA COLLECTION TYPE FOLEY CATH
[2021-10-14 21:07] LABS: RBC,URINE 0-2 /HPF (0-2); SQUAMOUS EPITHELIAL CELL,UR FEW /LPF (FEW); WBC,URINE 0-4 /HPF (0-4)
[2021-10-14 21:09] LABS: BACTERIA,URINE 4+ /HPF (Neg)
[2021-10-14] MEDS ORDERED: diphenhydrAMINE 25mg capsule PO PRN (21:35)
[2021-10-14] MEDS ORDERED: ondansetron/PF 4mg/2ml inj IV PRN (21:35)
[2021-10-14] MEDS ORDERED: HYDROmorphone inj. 0.5 MG/0.5 ML DISP.SYRIN IV PRN (21:35)
[2021-10-14] MEDS ORDERED: mag hydrox/Alum hydrox/simeth 30ml oral suspension PO PRN (21:35)
[2021-10-14] MEDS ORDERED: HYDROcodone/acetaminophen 10/325mg tab PO PRN (21:35)
[2021-10-14] MEDS ORDERED: acetaminophen 650mg rectal suppository RC PRN (21:35)
[2021-10-14] MEDS ORDERED: morphine 2 MG/ML inj. syringe IV PRN ×2 (21:35)
[2021-10-14] MEDS ORDERED: acetaminophen 325mg tablet PO PRN ×2 (21:35)
[2021-10-14] MEDS ORDERED: magnesium hydroxide 30ml (MOM) UD suspension PO PRN (21:35)
[2021-10-14] MEDS ORDERED: diphenhydrAMINE 50 mg/ml inj IV PRN (21:35)
[2021-10-14] MEDS ORDERED: HYDROmorphone/PF 0.2 MG/ML SYRINGE IV PRN (21:35)
[2021-10-14] MEDS ORDERED: bisacodyl 10mg suppository rectal RC PRN (21:35)
[2021-10-14] MEDS ORDERED: HYDROcodone/acetaminophen 5mg/325mg tablet PO PRN (21:35)
[2021-10-14] MEDS ORDERED: ondansetron 4mg rapidly disintigrating tab PO PRN (21:35)
[2021-10-14] MEDS ORDERED: glucagon, human recombinant 1mg kit SUBCUT PRN (21:40)
[2021-10-14] MEDS ORDERED: dextrose 50%-water 50ml dispensing syringe IV PRN ×2 (21:40)
[2021-10-14] MEDS ORDERED: dextrose ORAL solution 15 GM/59 ML bottle PO PRN ×2 (21:40)
[2021-10-14] MEDS ORDERED: MESSAGE TO PHARMACY PO ONE (21:40)
[2021-10-14 21:55] LABS: APTT 24 SECONDS (22-32)
[2021-10-14 22:06] LABS: D-DIMER 1.36 MG/L FEU (0-0.50)
[2021-10-14 22:07] LABS: MAGNESIUM 1.5 MG/DL (1.5-2.4); PHOSPHORUS 3.2 MG/DL (2.3-4.5)
[2021-10-14] MEDS: normal saline 1000ml 1,000 ML IV SCH (22:29)
--- NOTE | 2021-10-15 00:46 | NUR ---
DR WU NOTIFIED IN REGARDS TO SBP 172. NO NEW ORDERS AT THIS TIME
[2021-10-15] MEDS: hydrALAZINE 20mg/ml inj. IV SCH ×4 (02:20→20:00)
--- NOTE | 2021-10-15 06:30 | NUR ---
FIRST CONTACT WITH PT. FOUND SUPINE IN BED, A/OX1 WHICH HAS BEEN HER BASELINE THIS ER VISIT. PT IS AWAITING BED ASSIGNMENT. KENDALL CATH IN PLACE. NAD.
[2021-10-15] MEDS: pantoprazole 40mg Tablet.DR PO SCH (07:30)
--- NOTE | 2021-10-15 07:45 | NUR ---
LAB AT BEDSIDE
[2021-10-15] MEDS: docusate sod 100mg capsule PO SCH ×2 (08:00→21:42)
[2021-10-15 08:01] LABS: BASOPHILS # (AUTO) 0.1 X10'3 (0-0.2); BASOPHILS % (AUTO) 0.9 % (0-1); EOSINOPHILS # (AUTO) 0.1 X10'3 (0-0.9); EOSINOPHILS % (AUTO) 0.8 % (0-6); HEMATOCRIT 34.4 % (35.0-45.0); HEMOGLOBIN 11.6 g/dl (12.0-16.0); LYMPHOCYTES # (AUTO) 1.3 X10'3 (1.1-4.8); LYMPHOCYTES % (AUTO) 13.7 % (21-51); MEAN CORPUSCULAR HEMOGLOBIN 29.6 PG (27.0-31.0); MEAN CORPUSCULAR HGB CONC 33.6 g/dL (33.0-36.5); MEAN CORPUSCULAR VOLUME 88.2 FL (78-98); MEAN PLATELET VOLUME 9.7 FL (7.4-10.4); MONOCYTES # (AUTO) 0.7 X10'3 (0-0.9); MONOCYTES % (AUTO) 8.2 % (2-12); NEUTROPHILS % (AUTO) 76.4 % (42-75); PLATELET COUNT 252 X10'3 (140-440); RED CELL DISTRIBUTION WIDTH 14.2 % (11.5-14.5); WHITE BLOOD COUNT 9.1 X10'3 (4.5-11.0)
[2021-10-15 08:35] LABS: ALANINE AMINOTRANSFERASE 26 U/L (12-78); ALBUMIN 3.3 G/DL (3.4-5.0); ALBUMIN/GLOBULIN RATIO 0.9 (1.1-1.5); ALKALINE PHOSPHATASE 68 IU/L (46-116); ANION GAP 12 (8-16); ASPARTATE AMINO TRANSFERASE 29 U/L (10-37); BILIRUBIN,TOTAL 0.5 MG/DL (0.1-1.0); BLOOD UREA NITROGEN 38 MG/DL (7-18); BUN/CREATININE RATIO 26.8 (6.6-38.0); CALCIUM 9.8 MG/DL (8.5-10.1); CHLORIDE 105 MMOL/L (99-107); CHOL/HDL RATIO 2.6 (0.00-4.99); CHOLESTEROL 187 MG/DL (0-200); CREATININE 1.42 MG/DL (0.40-0.90); GLUCOSE 308 MG/DL (70-104); HDL CHOLESTEROL 72 MG/DL (35-60); LDL CHOLESTEROL 87 MG/DL (50-100); POTASSIUM 4.4 MMOL/L (3.5-5.1); SODIUM 140 MMOL/L (135-145); TOTAL CARBON DIOXIDE 22.8 MMOL/L (24-32); TOTAL PROTEIN 7.1 G/DL (6.4-8.2); TRIGLYCERIDES 127 MG/DL (20-135); eGFR 36 ML/MIN
[2021-10-15] MEDS: CefTRIAXone/D5W-Rocephin 1gm 50 ML IV SCH (08:58)
[2021-10-15] MEDS: heparin, porcine 5000 units/ml vial SQ SCH ×2 (08:58→21:41)
--- NOTE | 2021-10-15 09:50 | NUR ---
PT AWAKE AND REFUSING MRI AT THIS TIME.
[2021-10-15] MEDS ORDERED: HYDR12.55 PO (10:02)
--- NOTE | 2021-10-15 10:50 | NUR ---
PT NOW AWAKE, STATES THAT 'STAFF IS TRYING KILL ME' RE-ORIENTED TO HOSPITAL.
--- NOTE | 2021-10-15 11:03 | NUR ---
HOSPITALIST AT BEDSIDE.
[2021-10-15] MEDS ORDERED: LORazepam 0.5 MG tablet PO PRN (11:25)
--- NOTE | 2021-10-15 12:05 | NUR ---
PT IS TOO COMBATIVE, AGITATED AND CONFUSED TO DO MRSA SWAB AT THIS TIME,
--- NOTE | 2021-10-15 12:25 | NUR ---
IV REINFORCED WITH TIM. PT AGREEABLE TO BE TOUCHED AT THIS TIME.
--- NOTE | 2021-10-15 13:17 | NUR ---
PT SLEEPING IN BED, RR EVEN AND UNLABORED. NAD.
--- NOTE | 2021-10-15 15:00 | NUR ---
PT SLEEPING IN BED, NO DISTRESS NOTED.
--- NOTE | 2021-10-15 16:52 | NUR ---
TELEPHONE REPORT TO KENYETTA KESSLER.
--- NOTE | 2021-10-15 18:13 | NUR ---
Patient in room PCU 3027. I have received report from Cyn KUMARI and had the opportunity to ask questions and assume patient care.
--- NOTE | 2021-10-15 18:34 | NUR ---
Patient came to the unit and was very agitated. She tried hitting the ER nurse who brought her up when we tried to remove the soiled sheets underneath her. The thinks we are trying to hurt/kill her. She is refusing all care and does not want us to do anything from her. I paged Dr. Isaacs and let him know what was going on with the patient. I tried to get vitals and do the 2 RN skin check and she was very angry and said no. I let shift engineer know and they are going to take over care.
[2021-10-15] MEDS ORDERED: dextrose 50%-water 50ml dispensing syringe IV PRN ×2 (18:35)
[2021-10-15] MEDS ORDERED: glucagon, human recombinant 1mg kit SUBCUT PRN (18:35)
[2021-10-15] MEDS ORDERED: insulin Lispro (HumaLOG) vial - multi-dose SQ SCH (18:35)
[2021-10-15] MEDS ORDERED: MESSAGE TO PHARMACY PO ONE (18:35)
[2021-10-15] MEDS ORDERED: dextrose ORAL solution 15 GM/59 ML bottle PO PRN ×2 (18:35)
[2021-10-15] MEDS ORDERED: diphenhydrAMINE 50 mg/ml inj IV PRN (18:40)
--- NOTE | 2021-10-15 18:43 | NUR ---
Problems reprioritized. Patient report given, questions answered & plan of care reviewed with Nahed KUMARI.
[2021-10-15] MEDS: LORazepam 2 mg/ml vial IV PRN (21:41)
[2021-10-15] MEDS: carvedilol 6.25mg tablet PO SCH (21:48)
[2021-10-15] MEDS: insulin glargine (Lantus) pen - multi-dose SQ SCH (21:48)
[2021-10-15] MEDS: lactobacillus rhamnosus 10,000 MMU CELLS/CAPSULE PO SCH (21:49)
[2021-10-15 22:00] VITALS: BP 172/91
[2021-10-16 02:00] VITALS: BP 141/84
[2021-10-16] MEDS: hydrALAZINE 20mg/ml inj. IV SCH ×4 (02:00→20:52)
[2021-10-16 06:00] VITALS: BP 143/79
[2021-10-16 06:23] LABS: BASOPHILS # (AUTO) 0.1 X10'3 (0-0.2); BASOPHILS % (AUTO) 0.9 % (0-1); EOSINOPHILS # (AUTO) 0.1 X10'3 (0-0.9); EOSINOPHILS % (AUTO) 1.2 % (0-6); HEMATOCRIT 35.4 % (35.0-45.0); HEMOGLOBIN 11.7 g/dl (12.0-16.0); LYMPHOCYTES # (AUTO) 1.4 X10'3 (1.1-4.8); LYMPHOCYTES % (AUTO) 19.7 % (21-51); MEAN CORPUSCULAR HEMOGLOBIN 29.1 PG (27.0-31.0); MEAN CORPUSCULAR VOLUME 88.4 FL (78-98); MEAN PLATELET VOLUME 10.1 FL (7.4-10.4); MONOCYTES # (AUTO) 0.6 X10'3 (0-0.9); NEUTROPHILS # (AUTO) 4.9 X10'3 (1.8-7.7); NEUTROPHILS % (AUTO) 69.2 % (42-75); PLATELET COUNT 254 X10'3 (140-440); RED BLOOD COUNT 4.01 X10'6 (4.20-5.60); RED CELL DISTRIBUTION WIDTH 14.5 % (11.5-14.5); WHITE BLOOD COUNT 7.1 X10'3 (4.5-11.0)
[2021-10-16 06:36] LABS: ALANINE AMINOTRANSFERASE 27 U/L (12-78); ALBUMIN 3.3 G/DL (3.4-5.0); ALBUMIN/GLOBULIN RATIO 0.9 (1.1-1.5); ALKALINE PHOSPHATASE 68 IU/L (46-116); ANION GAP 11 (8-16); ASPARTATE AMINO TRANSFERASE 22 U/L (10-37); BILIRUBIN,TOTAL 0.4 MG/DL (0.1-1.0); BLOOD UREA NITROGEN 38 MG/DL (7-18); BUN/CREATININE RATIO 25.5 (6.6-38.0); CALCIUM 10.1 MG/DL (8.5-10.1); CHLORIDE 107 MMOL/L (99-107); CREATININE 1.49 MG/DL (0.40-0.90); GLUCOSE 274 MG/DL (70-104); POTASSIUM 4.1 MMOL/L (3.5-5.1); SODIUM 144 MMOL/L (135-145); TOTAL PROTEIN 7.1 G/DL (6.4-8.2); eGFR 34 ML/MIN
[2021-10-16] MEDS: CefTRIAXone/D5W-Rocephin 1gm 50 ML IV SCH (08:38)
[2021-10-16] MEDS: lactobacillus rhamnosus 10,000 MMU CELLS/CAPSULE PO SCH ×2 (08:39→20:00)
[2021-10-16] MEDS: linagliptin 5mg tablet PO SCH (08:39)
[2021-10-16] MEDS: heparin, porcine 5000 units/ml vial SQ SCH ×2 (08:39→20:53)
[2021-10-16] MEDS: carvedilol 6.25mg tablet PO SCH ×2 (08:39→20:00)
[2021-10-16] MEDS: pantoprazole 40mg Tablet.DR PO SCH (08:39)
[2021-10-16] MEDS: lisinopril 20mg tablet PO SCH (08:40)
[2021-10-16] MEDS: docusate sod 100mg capsule PO SCH ×2 (08:41→20:00)
--- NOTE | 2021-10-16 10:59 | NUR ---
Diabetes consult: Noted A1C 9 down from 10.9 in March of this year. Pt noted to be confused in EMR. Written DM education w/ RD contact info placed in pt chart. Addendum: 10/16/21 at [address] Amended: Links added.
[2021-10-16 11:00] VITALS: BP 136/77
--- NOTE | 2021-10-16 12:57 | NUR ---
patient blood sugar 276. refused insulin coverage. son at bedside .
[2021-10-16 18:00] VITALS: BP 169/89
--- NOTE | 2021-10-16 18:30 | NUR ---
Received report from nurse Pearson. He stated that patient refused blood sugar coverage and patient is not eating. Assessed patient, and there is not sign of acute distress and will resumed care of the patient. JESSENIA Dockery RN
[2021-10-16] MEDS: insulin glargine (Lantus) pen - multi-dose SQ SCH (20:49)
[2021-10-16] MEDS: LORazepam 2 mg/ml vial IV PRN (20:52)
[2021-10-16] MEDS: normal saline 1000ml 1,000 ML IV SCH (21:05)
[2021-10-16 22:00] VITALS: BP 158/64
[2021-10-17 02:00] VITALS: BP 175/74
[2021-10-17] MEDS: hydrALAZINE 20mg/ml inj. IV SCH ×4 (02:00→20:36)
--- NOTE | 2021-10-17 02:00 | NUR ---
Patient refused her blood pressure (hydralazine) medication. Her BP was 169/89. This nurse explained the importance of the medication but she screamed and yelled and stated we are hurting her. Nahed RUELAS,RN
--- NOTE | 2021-10-17 05:00 | NUR ---
Patient took off her Iv, she refused to have this nurse insert a new one. Patient is non compliant with care. Nahed RUELAS,RN
[2021-10-17 06:00] VITALS: BP 156/74
[2021-10-17 06:33] LABS: BASOPHILS # (AUTO) 0.1 X10'3 (0-0.2); BASOPHILS % (AUTO) 0.7 % (0-1); EOSINOPHILS # (AUTO) 0.1 X10'3 (0-0.9); EOSINOPHILS % (AUTO) 0.6 % (0-6); HEMOGLOBIN 12.2 g/dl (12.0-16.0); LYMPHOCYTES # (AUTO) 1.3 X10'3 (1.1-4.8); LYMPHOCYTES % (AUTO) 11.3 % (21-51); MEAN CORPUSCULAR HGB CONC 32.9 g/dL (33.0-36.5); MONOCYTES # (AUTO) 0.9 X10'3 (0-0.9); NEUTROPHILS # (AUTO) 9.2 X10'3 (1.8-7.7); NEUTROPHILS % (AUTO) 79.4 % (42-75); PLATELET COUNT 262 X10'3 (140-440); RED CELL DISTRIBUTION WIDTH 14.4 % (11.5-14.5); WHITE BLOOD COUNT 11.6 X10'3 (4.5-11.0)
[2021-10-17 06:37] LABS: ALANINE AMINOTRANSFERASE 24 U/L (12-78); ALBUMIN 3.6 G/DL (3.4-5.0); ALBUMIN/GLOBULIN RATIO 0.9 (1.1-1.5); ALKALINE PHOSPHATASE 71 IU/L (46-116); ANION GAP 10 (8-16); ASPARTATE AMINO TRANSFERASE 16 U/L (10-37); BILIRUBIN,TOTAL 0.4 MG/DL (0.1-1.0); BLOOD UREA NITROGEN 39 MG/DL (7-18); CALCIUM 10.4 MG/DL (8.5-10.1); CHLORIDE 106 MMOL/L (99-107); GLUCOSE 205 MG/DL (70-104); POTASSIUM 3.7 MMOL/L (3.5-5.1); SODIUM 142 MMOL/L (135-145); TOTAL CARBON DIOXIDE 25.8 MMOL/L (24-32); TOTAL PROTEIN 7.7 G/DL (6.4-8.2); eGFR 33 ML/MIN
--- NOTE | 2021-10-17 06:37 | NUR ---
Problems reprioritized. Patient report given, questions answered & plan of care reviewed with Michel.
[2021-10-17] MEDS: heparin, porcine 5000 units/ml vial SQ SCH ×2 (08:12→20:34)
[2021-10-17] MEDS: linagliptin 5mg tablet PO SCH (08:12)
[2021-10-17] MEDS: lisinopril 20mg tablet PO SCH (08:13)
[2021-10-17] MEDS: docusate sod 100mg capsule PO SCH (08:13)
[2021-10-17] MEDS: carvedilol 6.25mg tablet PO SCH ×2 (08:13→20:33)
[2021-10-17] MEDS: pantoprazole 40mg Tablet.DR PO SCH (08:13)
[2021-10-17] MEDS: lactobacillus rhamnosus 10,000 MMU CELLS/CAPSULE PO SCH ×2 (08:13→20:34)
[2021-10-17] MEDS: CefTRIAXone/D5W-Rocephin 1gm 50 ML IV SCH (08:19)
[2021-10-17 11:00] VITALS: BP 149/76
[2021-10-17 18:00] VITALS: BP 155/63
--- NOTE | 2021-10-17 19:21 | NUR ---
patent refused insulin coverage.
[2021-10-17] MEDS: hydrOXYzine 10 MG tablet PO PRN (20:46)
[2021-10-17] MEDS: insulin glargine (Lantus) pen - multi-dose SQ SCH (21:13)
[2021-10-17 22:00] VITALS: BP 144/71
[2021-10-17] MEDS: temazepam 15mg capsule PO PRN (23:00)
[2021-10-18] MEDS: LORazepam 2 mg/ml vial IV PRN ×2 (01:24→21:23)
[2021-10-18] MEDS: hydrALAZINE 20mg/ml inj. IV SCH ×4 (01:49→19:56)
[2021-10-18 02:00] VITALS: BP 130/55
[2021-10-18] MEDS: normal saline 1000ml 1,000 ML IV SCH ×2 (03:15→13:00)
[2021-10-18 06:00] VITALS: BP 117/64
--- NOTE | 2021-10-18 06:40 | NUR ---
Patient in room PCU 3027. I have received report from Cristel RN and had the opportunity to ask questions and assume patient care.
[2021-10-18 07:23] LABS: BASOPHILS # (AUTO) 0.1 X10'3 (0-0.2); BASOPHILS % (AUTO) 0.9 % (0-1); EOSINOPHILS # (AUTO) 0.2 X10'3 (0-0.9); EOSINOPHILS % (AUTO) 1.4 % (0-6); HEMATOCRIT 35.5 % (35.0-45.0); HEMOGLOBIN 11.7 g/dl (12.0-16.0); LYMPHOCYTES % (AUTO) 9.6 % (21-51); MEAN CORPUSCULAR HEMOGLOBIN 29.1 PG (27.0-31.0); MEAN CORPUSCULAR VOLUME 88.2 FL (78-98); MEAN PLATELET VOLUME 10.4 FL (7.4-10.4); MONOCYTES # (AUTO) 0.9 X10'3 (0-0.9); MONOCYTES % (AUTO) 8.3 % (2-12); NEUTROPHILS # (AUTO) 8.5 X10'3 (1.8-7.7); NEUTROPHILS % (AUTO) 79.8 % (42-75); PLATELET COUNT 263 X10'3 (140-440); RED BLOOD COUNT 4.02 X10'6 (4.20-5.60); RED CELL DISTRIBUTION WIDTH 14.3 % (11.5-14.5); WHITE BLOOD COUNT 10.6 X10'3 (4.5-11.0)
[2021-10-18] MEDS: pantoprazole 40mg Tablet.DR PO SCH (07:30)
[2021-10-18] MEDS: lactobacillus rhamnosus 10,000 MMU CELLS/CAPSULE PO SCH ×2 (08:00→19:55)
[2021-10-18] MEDS: lisinopril 20mg tablet PO SCH (08:00)
[2021-10-18] MEDS: carvedilol 6.25mg tablet PO SCH ×2 (08:00→19:55)
[2021-10-18 08:01] LABS: ALBUMIN 3.5 G/DL (3.4-5.0); ANION GAP 12 (8-16); BILIRUBIN,TOTAL 0.5 MG/DL (0.1-1.0); BLOOD UREA NITROGEN 48 MG/DL (7-18); BUN/CREATININE RATIO 29.1 (6.6-38.0); CALCIUM 10.1 MG/DL (8.5-10.1); CHLORIDE 110 MMOL/L (99-107); CREATININE 1.65 MG/DL (0.40-0.90); GLUCOSE 181 MG/DL (70-104); POTASSIUM 3.8 MMOL/L (3.5-5.1); SODIUM 146 MMOL/L (135-145); TOTAL CARBON DIOXIDE 24.1 MMOL/L (24-32); TOTAL PROTEIN 7.5 G/DL (6.4-8.2); eGFR 30 ML/MIN
[2021-10-18 08:02] LABS: ALANINE AMINOTRANSFERASE 24 U/L (12-78); ALBUMIN/GLOBULIN RATIO 0.9 (1.1-1.5); ALKALINE PHOSPHATASE 67 IU/L (46-116); ASPARTATE AMINO TRANSFERASE 19 U/L (10-37)
[2021-10-18] MEDS: heparin, porcine 5000 units/ml vial SQ SCH ×2 (09:49→19:55)
[2021-10-18] MEDS: insulin Lispro (HumaLOG) vial - multi-dose SQ SCH (09:55)
[2021-10-18] MEDS: CefTRIAXone/D5W-Rocephin 1gm 50 ML IV SCH (09:57)
[2021-10-18 11:00] VITALS: BP 125/62
[2021-10-18 15:00] VITALS: BP 134/53
--- NOTE | 2021-10-18 15:30 | NUR ---
Patient in room PCU 3027. I have received report from KENYETTA Foley and had the opportunity to ask questions and assume patient care.
[2021-10-18 18:00] VITALS: BP 133/68
--- NOTE | 2021-10-18 18:20 | NUR ---
Problems reprioritized. Patient report given, questions answered & plan of care reviewed with KENYETTA Florentino.
[2021-10-18] MEDS: insulin glargine (Lantus) pen - multi-dose SQ SCH (21:16)
[2021-10-18 22:00] VITALS: BP 131/49
[2021-10-19 02:00] VITALS: BP 150/72
[2021-10-19] MEDS: hydrALAZINE 20mg/ml inj. IV SCH ×4 (02:09→20:03)
--- NOTE | 2021-10-19 06:47 | NUR ---
Patient in room PCU 3027. I have received report from Chadd KUMARI and had the opportunity to ask questions and assume patient care.
[2021-10-19 06:55] LABS: BASOPHILS # (AUTO) 0.1 X10'3 (0-0.2); BASOPHILS % (AUTO) 0.9 % (0-1); EOSINOPHILS # (AUTO) 0.1 X10'3 (0-0.9); EOSINOPHILS % (AUTO) 1.3 % (0-6); HEMOGLOBIN 11.4 g/dl (12.0-16.0); LYMPHOCYTES # (AUTO) 1.2 X10'3 (1.1-4.8); MEAN CORPUSCULAR HEMOGLOBIN 29.3 PG (27.0-31.0); MEAN CORPUSCULAR HGB CONC 33.4 g/dL (33.0-36.5); MEAN CORPUSCULAR VOLUME 87.7 FL (78-98); MEAN PLATELET VOLUME 10.3 FL (7.4-10.4); MONOCYTES # (AUTO) 0.8 X10'3 (0-0.9); MONOCYTES % (AUTO) 7.9 % (2-12); NEUTROPHILS # (AUTO) 8.3 X10'3 (1.8-7.7); NEUTROPHILS % (AUTO) 78.9 % (42-75); PLATELET COUNT 240 X10'3 (140-440); RED BLOOD COUNT 3.88 X10'6 (4.20-5.60); RED CELL DISTRIBUTION WIDTH 14.4 % (11.5-14.5); WHITE BLOOD COUNT 10.5 X10'3 (4.5-11.0)
[2021-10-19 07:00] VITALS: BP 144/70
[2021-10-19 07:15] LABS: ALANINE AMINOTRANSFERASE 26 U/L (12-78); ALBUMIN 3.2 G/DL (3.4-5.0); ALBUMIN/GLOBULIN RATIO 0.8 (1.1-1.5); ALKALINE PHOSPHATASE 65 IU/L (46-116); ANION GAP 13 (8-16); ASPARTATE AMINO TRANSFERASE 25 U/L (10-37); BILIRUBIN,TOTAL 0.4 MG/DL (0.1-1.0); BLOOD UREA NITROGEN 53 MG/DL (7-18); BUN/CREATININE RATIO 32.5 (6.6-38.0); CALCIUM 9.7 MG/DL (8.5-10.1); CHLORIDE 116 MMOL/L (99-107); CREATININE 1.63 MG/DL (0.40-0.90); GLUCOSE 109 MG/DL (70-104); POTASSIUM 3.6 MMOL/L (3.5-5.1); SODIUM 151 MMOL/L (135-145); TOTAL PROTEIN 7.1 G/DL (6.4-8.2); eGFR 30 ML/MIN
[2021-10-19] MEDS: carvedilol 6.25mg tablet PO SCH ×2 (08:56→20:05)
[2021-10-19] MEDS: CefTRIAXone/D5W-Rocephin 1gm 50 ML IV SCH (08:56)
[2021-10-19] MEDS: lactobacillus rhamnosus 10,000 MMU CELLS/CAPSULE PO SCH ×2 (08:56→20:05)
[2021-10-19] MEDS: pantoprazole 40mg Tablet.DR PO SCH (08:57)
[2021-10-19] MEDS: lisinopril 20mg tablet PO SCH (08:57)
[2021-10-19] MEDS: heparin, porcine 5000 units/ml vial SQ SCH ×2 (08:57→20:05)
[2021-10-19] MEDS: normal saline 1000ml 1,000 ML IV SCH (09:03)
[2021-10-19] MEDS: dextrose 5%-water 1,000 ML IV SCH (09:10)
--- NOTE | 2021-10-19 11:56 | NUR ---
Initial: Pt admit for ALOC and acute renal failure s/p fall. Pt remains confused, currently A/O x 1 and resistive to care per physical assessment. Pt initially NPO though was advanced to mechanical soft diet 10/17 with the addition of CHO controlled diet on 10/18. Pt eating poorly throughout LOS with only ~50% PO intake at lunch 10/18 and 0-25% PO intake at dinner 10/18 with 0% PO intake/refusals all surrounding meals. Recommend BSS with ST to determine most appropriate texture modification as well as regular diet in view of geriatric age and poor PO intake. Pt would also likely benefit from encouragement and/or assistance with meals to optimize PO intake. Noted pt with an elevated serum Na, previously receiving NS at 70 mL/hr which was discontinued today and pt started on D5 at 50 mL/hr (providing 204 kcal/day). LBM 10/18. Will continue to follow closely. Recommendations: 1) Advance to regular diet in view of geriatric age and poor PO intake; texture modification per ST pending BSS 2) Monitor appropriateness for ONS vs supplemental EN 3) Encourage PO intake and assist with meals 4) Bowel care PRN 5) Weekly scaled weights Addendum: 10/19/21 at [address] Amended: Links added.
[2021-10-19 12:00] VITALS: BP 134/45
[2021-10-19 16:14] VITALS: BP 129/53
[2021-10-19 18:25] VITALS: BP 125/55
--- NOTE | 2021-10-19 18:46 | NUR ---
Patient in room PCU 3027. I have received report from Nabeel KUMARI and had the opportunity to ask questions and assume patient care.
--- NOTE | 2021-10-19 19:00 | NUR ---
Problems reprioritized. Patient report given, questions answered & plan of care reviewed with Guillermo KUMARI[].
--- NOTE | 2021-10-19 19:19 | NUR ---
Pt was transferred to [address] [place] [address] A, restraints were removed. Order D/C'd Addendum: 10/19/21 at 1921 by Paulina Stafford RN Amended: Links added.
[2021-10-19] MEDS: LORazepam 2 mg/ml vial IV PRN (20:02)
[2021-10-19] MEDS: temazepam 15mg capsule PO PRN (22:06)
[2021-10-19 22:08] VITALS: BP 150/64
[2021-10-19] MEDS: insulin glargine (Lantus) pen - multi-dose SQ SCH (22:09)
[2021-10-20 02:00] VITALS: BP 126/72
[2021-10-20] MEDS: hydrALAZINE 20mg/ml inj. IV SCH ×4 (02:00→19:30)
--- NOTE | 2021-10-20 02:30 | NUR ---
pt only eating bites of food Addendum: 10/24/21 at 0306 by Vickie Cash RN Amended: Links added.
--- NOTE | 2021-10-20 02:54 | NUR ---
Patient has been largely uncooperative throughout shift, highly responsive to internal stimuli and often unresponsive to external stimuli or questions from nursing staff. Very resistant to taking meds or receiving care. Held 0200 hydralazine due to patient's intensely anxious reaction to being roused and current normotensive blood pressures and heart rate.
[2021-10-20 06:00] VITALS: BP 130/74
--- NOTE | 2021-10-20 06:21 | NUR ---
Patient in room PCU 3016. I have received report from Guillermo KUMARI and had the opportunity to ask questions and assume patient care.
[2021-10-20] MEDS: dextrose 5%-water 1,000 ML IV SCH ×2 (08:00→21:06)
[2021-10-20] MEDS: carvedilol 6.25mg tablet PO SCH ×2 (08:37→19:30)
[2021-10-20] MEDS: pantoprazole 40mg Tablet.DR PO SCH (08:38)
[2021-10-20] MEDS: lactobacillus rhamnosus 10,000 MMU CELLS/CAPSULE PO SCH ×2 (08:39→19:30)
[2021-10-20] MEDS: heparin, porcine 5000 units/ml vial SQ SCH ×2 (08:40→19:30)
[2021-10-20] MEDS: lisinopril 20mg tablet PO SCH (08:40)
[2021-10-20] MEDS: CefTRIAXone/D5W-Rocephin 1gm 50 ML IV SCH (08:42)
[2021-10-20 09:59] LABS: BASOPHILS # (AUTO) 0.1 X10'3 (0-0.2); EOSINOPHILS # (AUTO) 0.1 X10'3 (0-0.9); HEMATOCRIT 34.7 % (35.0-45.0); HEMOGLOBIN 11.4 g/dl (12.0-16.0); LYMPHOCYTES % (AUTO) 8.8 % (21-51); MEAN CORPUSCULAR HEMOGLOBIN 29.3 PG (27.0-31.0); MEAN CORPUSCULAR HGB CONC 32.8 g/dL (33.0-36.5); MEAN CORPUSCULAR VOLUME 89.1 FL (78-98); MEAN PLATELET VOLUME 11.6 FL (7.4-10.4); MONOCYTES # (AUTO) 0.9 X10'3 (0-0.9); MONOCYTES % (AUTO) 8.4 % (2-12); NEUTROPHILS # (AUTO) 9.1 X10'3 (1.8-7.7); NEUTROPHILS % (AUTO) 80.8 % (42-75); PLATELET COUNT 224 X10'3 (140-440); RED CELL DISTRIBUTION WIDTH 14.6 % (11.5-14.5); WHITE BLOOD COUNT 11.3 X10'3 (4.5-11.0)
[2021-10-20 10:02] LABS: BLOOD UREA NITROGEN 49 MG/DL (7-18); BUN/CREATININE RATIO 31.4 (6.6-38.0); CALCIUM 9.8 MG/DL (8.5-10.1); CHLORIDE 118 MMOL/L (99-107); CREATININE 1.56 MG/DL (0.40-0.90); GLUCOSE 117 MG/DL (70-104); TOTAL CARBON DIOXIDE 23.2 MMOL/L (24-32); eGFR 32 ML/MIN
[2021-10-20 10:07] LABS: ANION GAP 13 (8-16); POTASSIUM 4.6 MMOL/L (3.5-5.1); SODIUM 154 MMOL/L (135-145)
[2021-10-20 11:00] VITALS: BP 119/55
[2021-10-20 16:12] VITALS: BP 138/59
--- NOTE | 2021-10-20 18:54 | NUR ---
Problems reprioritized. Patient report given, questions answered & plan of care reviewed with Pat RN[].
[2021-10-20 19:00] VITALS: BP 136/73
[2021-10-20] MEDS: insulin Lispro (HumaLOG) vial - multi-dose SQ SCH (19:30)
--- NOTE | 2021-10-20 19:30 | NUR ---
denies pain when asked; pt will yell out few seconds when touching right hand to reposition on a pillow Addendum: 10/21/21 at 0233 by Vickie Cash RN Amended: Links added.
[2021-10-20 23:00] VITALS: BP 109/38
[2021-10-21] MEDS: insulin glargine (Lantus) pen - multi-dose SQ SCH ×2 (00:13→22:24)
[2021-10-21 03:29] VITALS: BP 114/47
[2021-10-21] MEDS: hydrALAZINE 20mg/ml inj. IV SCH ×4 (03:34→20:00)
[2021-10-21 06:00] VITALS: BP 124/52
--- NOTE | 2021-10-21 06:40 | NUR ---
Patient in room PCU 3016. I have received report from Flavia RN and had the opportunity to ask questions and assume patient care.
[2021-10-21 06:43] LABS: BASOPHILS % (AUTO) 0.3 % (0-1); EOSINOPHILS # (AUTO) 0.1 X10'3 (0-0.9); HEMATOCRIT 33.3 % (35.0-45.0); LYMPHOCYTES # (AUTO) 1.2 X10'3 (1.1-4.8); LYMPHOCYTES % (AUTO) 13.3 % (21-51); MEAN CORPUSCULAR HEMOGLOBIN 29.5 PG (27.0-31.0); MEAN CORPUSCULAR VOLUME 89.3 FL (78-98); MEAN PLATELET VOLUME 10.9 FL (7.4-10.4); MONOCYTES % (AUTO) 10.8 % (2-12); NEUTROPHILS # (AUTO) 6.9 X10'3 (1.8-7.7); NEUTROPHILS % (AUTO) 74.6 % (42-75); PLATELET COUNT 214 X10'3 (140-440); RED BLOOD COUNT 3.73 X10'6 (4.20-5.60); RED CELL DISTRIBUTION WIDTH 14.1 % (11.5-14.5); WHITE BLOOD COUNT 9.2 X10'3 (4.5-11.0)
[2021-10-21 06:56] LABS: ALBUMIN 2.5 G/DL (3.4-5.0); ANION GAP 11 (8-16); BLOOD UREA NITROGEN 47 MG/DL (7-18); BUN/CREATININE RATIO 28.1 (6.6-38.0); CALCIUM 9.4 MG/DL (8.5-10.1); CHLORIDE 108 MMOL/L (99-107); CREATININE 1.67 MG/DL (0.40-0.90); GLUCOSE 197 MG/DL (70-104); POTASSIUM 3.5 MMOL/L (3.5-5.1); SODIUM 141 MMOL/L (135-145); TOTAL CARBON DIOXIDE 22.3 MMOL/L (24-32); eGFR 29 ML/MIN
[2021-10-21] MEDS: CefTRIAXone/D5W-Rocephin 1gm 50 ML IV SCH (07:50)
[2021-10-21] MEDS: dextrose 5%-water 1,000 ML IV SCH (07:51)
[2021-10-21] MEDS: lactobacillus rhamnosus 10,000 MMU CELLS/CAPSULE PO SCH ×2 (07:51→20:14)
[2021-10-21] MEDS: heparin, porcine 5000 units/ml vial SQ SCH ×2 (07:51→20:14)
[2021-10-21] MEDS: lisinopril 20mg tablet PO SCH (07:52)
[2021-10-21] MEDS: carvedilol 6.25mg tablet PO SCH ×2 (07:52→20:14)
[2021-10-21] MEDS: pantoprazole 40mg Tablet.DR PO SCH (07:52)
--- NOTE | 2021-10-21 09:08 | NUR ---
Paged Radiology department PCU chapin KUMARI ext [phone]. RE: Amy Jarquin. Patient need right arm xray please. Thanks
--- NOTE | 2021-10-21 09:09 | NUR ---
Paged Vascular dept PCU chapin KUMARI ext [phone]. RE: Amy Jarquin. Patient need right arm ultrasound please
[2021-10-21 11:33] VITALS: BP 94/41
[2021-10-21] MEDS: insulin Lispro (HumaLOG) vial - multi-dose SQ SCH (12:33)
--- NOTE | 2021-10-21 12:43 | NUR ---
Paged Dr. Marvin PAGER ID: [phone] MESSAGE: ERICA Lockhart RN ext [phone]. RE: Amy Jarquin. Blood sugar 353mg/dl. I just gave her 12 units of humalog . Pt still on D5 W IVF running, do you want this d/c?
[2021-10-21] MEDS: sodium chloride 0.45% 1,000 ML IV SCH (13:09)
[2021-10-21 18:00] VITALS: BP 115/50
[2021-10-21 18:04] VITALS: BP 104/41
--- NOTE | 2021-10-21 18:15 | NUR ---
Problems reprioritized. Patient report given, questions answered & plan of care reviewed with Blanca KUMARI.
--- NOTE | 2021-10-21 18:40 | NUR ---
Problems reprioritized. Patient report given, questions answered & plan of care reviewed with Blanca KUMARI.
[2021-10-22] MEDS: hydrALAZINE 20mg/ml inj. IV SCH ×4 (02:00→20:00)
[2021-10-22 06:00] VITALS: BP 117/74
--- NOTE | 2021-10-22 06:17 | NUR ---
Patient in room U 3016. I have received report from Blanca KUMARI Traveler and had the opportunity to ask questions and assume patient care.
--- NOTE | 2021-10-22 06:38 | NUR ---
Problems reprioritized. Patient report given, questions answered & plan of care reviewed with Idemla.
[2021-10-22] MEDS: pantoprazole 40mg Tablet.DR PO SCH (08:27)
[2021-10-22] MEDS: lactobacillus rhamnosus 10,000 MMU CELLS/CAPSULE PO SCH ×2 (08:27→20:25)
[2021-10-22] MEDS: carvedilol 6.25mg tablet PO SCH ×2 (08:28→20:25)
[2021-10-22] MEDS: CefTRIAXone/D5W-Rocephin 1gm 50 ML IV SCH (08:28)
[2021-10-22] MEDS: lisinopril 20mg tablet PO SCH (08:29)
[2021-10-22] MEDS: heparin, porcine 5000 units/ml vial SQ SCH ×2 (08:30→20:26)
[2021-10-22] MEDS: sodium chloride 0.45% 1,000 ML IV SCH ×2 (08:55→23:43)
[2021-10-22 08:56] LABS: ALBUMIN 2.3 G/DL (3.4-5.0); ANION GAP 9 (8-16); BLOOD UREA NITROGEN 53 MG/DL (7-18); BUN/CREATININE RATIO 26.5 (6.6-38.0); CALCIUM 9.4 MG/DL (8.5-10.1); CHLORIDE 104 MMOL/L (99-107); GLUCOSE 184 MG/DL (70-104); POTASSIUM 3.7 MMOL/L (3.5-5.1); SODIUM 135 MMOL/L (135-145); TOTAL CARBON DIOXIDE 22.2 MMOL/L (24-32); eGFR 24 ML/MIN
[2021-10-22 11:00] VITALS: BP 108/42
--- NOTE | 2021-10-22 11:48 | NUR ---
Initial: Pt seen by [employer] and recommended continue to Mechanical soft diet. Though pt noted to be more alert and oriented, is still resistive to care and has low PO intake, avg 25% of meals no meeting needs. Pt agrees to trying ONS at this time. Recommend trial of Ensure Enlive TID, to be sent pending MD approval. LB 10/21. Will continue to monitor and make recommendations as appropriate. Recommendations: 1) Advance to regular diet in view of geriatric age and poor PO intake; texture modification per ST 2) Ensure Enlive TID; pending MD verification 3) Encourage PO intake and assist with meals 4) Bowel care PRN 5) Weekly scaled weights Addendum: 10/22/21 at [address] Amended: Links added.
[2021-10-22] MEDS: lactose-reduced food (Ensure Enlive) - 237ml bottle PO SCH ×2 (13:00→18:00)
[2021-10-22] MEDS: LORazepam 2 mg/ml vial IV PRN (13:32)
--- NOTE | 2021-10-22 13:48 | NUR ---
promotional table spacer PAGER ID: [phone] MESSAGE: Amy Jarquin#[phone]- Pt very confused, aggressive, pulling on aaron, IV, trying to get out of bed.Gave her 1mg of Ativan. Could I get order for restrains and perhaps a sitter?(she is in a sitter room, I just need the order) marcelino Mack [phone]
[2021-10-22] MEDS: insulin Lispro (HumaLOG) vial - multi-dose SQ SCH (14:21)
[2021-10-22 15:00] VITALS: BP 99/69
[2021-10-22 18:00] VITALS: BP 99/69
--- NOTE | 2021-10-22 18:43 | NUR ---
Patient in room PCU 3016. I have received report from KENYETTA Staples and had the opportunity to ask questions and assume patient care.
--- NOTE | 2021-10-22 18:44 | NUR ---
Problems reprioritized. Patient report given, questions answered & plan of care reviewed with Cherelle KUMARIsurgical elastic knitter hand frame.
[2021-10-22 21:30] VITALS: BP 130/34
[2021-10-22] MEDS: insulin glargine (Lantus) pen - multi-dose SQ SCH (21:30)
[2021-10-23 02:00] VITALS: BP 130/80
[2021-10-23] MEDS: hydrALAZINE 20mg/ml inj. IV SCH ×4 (02:00→20:21)
[2021-10-23] MEDS: sodium chloride 0.45% 1,000 ML IV SCH (05:25)
--- NOTE | 2021-10-23 06:47 | NUR ---
Problems reprioritized. Patient report given, questions answered & plan of care reviewed with KENYETTA Morataya.
--- NOTE | 2021-10-23 06:50 | NUR ---
Patient in room PCU 3016. I have received report from Cherelle Fall RN and had the opportunity to ask questions and assume patient care.
[2021-10-23 07:07] VITALS: BP 122/75
[2021-10-23 07:26] LABS: BASOPHILS # (AUTO) 0.1 X10'3 (0-0.2); BASOPHILS % (AUTO) 0.6 % (0-1); EOSINOPHILS # (AUTO) 0.2 X10'3 (0-0.9); EOSINOPHILS % (AUTO) 2.1 % (0-6); HEMATOCRIT 30.7 % (35.0-45.0); LYMPHOCYTES # (AUTO) 1.2 X10'3 (1.1-4.8); LYMPHOCYTES % (AUTO) 14.6 % (21-51); MEAN CORPUSCULAR HEMOGLOBIN 29.3 PG (27.0-31.0); MEAN CORPUSCULAR HGB CONC 32.6 g/dL (33.0-36.5); MEAN CORPUSCULAR VOLUME 89.9 FL (78-98); MEAN PLATELET VOLUME 11.1 FL (7.4-10.4); MONOCYTES # (AUTO) 0.9 X10'3 (0-0.9); MONOCYTES % (AUTO) 11.6 % (2-12); NEUTROPHILS # (AUTO) 5.8 X10'3 (1.8-7.7); NEUTROPHILS % (AUTO) 71.1 % (42-75); PLATELET COUNT 227 X10'3 (140-440); RED BLOOD COUNT 3.42 X10'6 (4.20-5.60); RED CELL DISTRIBUTION WIDTH 13.9 % (11.5-14.5); WHITE BLOOD COUNT 8.2 X10'3 (4.5-11.0)
[2021-10-23 07:48] LABS: ALBUMIN 2.4 G/DL (3.4-5.0); ANION GAP 12 (8-16); BLOOD UREA NITROGEN 46 MG/DL (7-18); BUN/CREATININE RATIO 31.1 (6.6-38.0); CALCIUM 9.5 MG/DL (8.5-10.1); CHLORIDE 105 MMOL/L (99-107); CREATININE 1.48 MG/DL (0.40-0.90); GLUCOSE 74 MG/DL (70-104); POTASSIUM 3.5 MMOL/L (3.5-5.1); SODIUM 137 MMOL/L (135-145); eGFR 34 ML/MIN
[2021-10-23 08:23] LABS: PLATELET ESTIMATE NORMAL
[2021-10-23 08:24] LABS: ELLIPTOCYTES FEW; LARGE PLATELETS FEW; SCHISTOCYTES FEW
[2021-10-23] MEDS: lisinopril 20mg tablet PO SCH (09:49)
[2021-10-23] MEDS: carvedilol 6.25mg tablet PO SCH ×2 (09:49→20:22)
[2021-10-23] MEDS: pantoprazole 40mg Tablet.DR PO SCH (09:49)
[2021-10-23] MEDS: lactobacillus rhamnosus 10,000 MMU CELLS/CAPSULE PO SCH ×2 (09:49→20:22)
[2021-10-23] MEDS: heparin, porcine 5000 units/ml vial SQ SCH ×2 (09:51→20:22)
[2021-10-23 12:30] VITALS: BP 127/50
[2021-10-23 16:51] VITALS: BP 139/58
--- NOTE | 2021-10-23 18:27 | NUR ---
PAGER ID: [phone] MESSAGE: Hood Tele [phone] Re: Sophie Jarquin Can I renew restraint orders we tried no restraints on her and she failed today. Thanks Hood.
--- NOTE | 2021-10-23 18:29 | NUR ---
Problems reprioritized. Patient report given, questions answered & plan of care reviewed with Pat RN.
[2021-10-23 19:00] VITALS: BP 136/59
[2021-10-23] MEDS: insulin glargine (Lantus) pen - multi-dose SQ SCH (22:18)
[2021-10-24 01:54] VITALS: BP 132/57
[2021-10-24] MEDS: LORazepam 2 mg/ml vial IV PRN ×2 (01:54→04:09)
[2021-10-24] MEDS: hydrALAZINE 20mg/ml inj. IV SCH ×4 (01:59→21:29)
--- NOTE | 2021-10-24 07:01 | NUR ---
Patient in room PCU 3016A. I have received report from KENYETTA CROSS and had the opportunity to ask questions and assume patient care.
[2021-10-24] MEDS: pantoprazole 40mg Tablet.DR PO SCH (07:30)
[2021-10-24] MEDS: carvedilol 6.25mg tablet PO SCH ×2 (08:00→21:27)
[2021-10-24] MEDS: heparin, porcine 5000 units/ml vial SQ SCH ×2 (08:00→21:26)
[2021-10-24] MEDS: lactobacillus rhamnosus 10,000 MMU CELLS/CAPSULE PO SCH ×2 (08:00→21:27)
[2021-10-24] MEDS: lisinopril 20mg tablet PO SCH (08:00)
--- NOTE | 2021-10-24 08:17 | NUR ---
PATIENT REFUSED VITALS TO BE TAKEN
[2021-10-24 11:00] VITALS: BP 135/55
[2021-10-24 14:00] VITALS: BP 125/55
--- NOTE | 2021-10-24 18:16 | NUR ---
Problems reprioritized. Patient report given, questions answered & plan of care reviewed with KENYETTA GOINS.
--- NOTE | 2021-10-24 18:39 | NUR ---
Patient in room PCU 3016. I have received report from Ashley KUMARI and had the opportunity to ask questions and assume patient care.
[2021-10-24] MEDS: insulin glargine (Lantus) pen - multi-dose SQ SCH (21:00)
[2021-10-24] MEDS: temazepam 15mg capsule PO PRN (21:43)
[2021-10-24 22:15] VITALS: BP 173/60
[2021-10-25] MEDS: hydrALAZINE 20mg/ml inj. IV SCH ×3 (02:00→13:08)
[2021-10-25 02:11] VITALS: BP 131/69
--- NOTE | 2021-10-25 03:27 | NUR ---
held patient's 0200 hydralazine due to patient finally resting after increasing anxiety and confusion since waking up earlier into the shift. patient finally resting peacefully and blood pressure is only slightly elevated.
[2021-10-25 06:30] VITALS: BP 129/64
--- NOTE | 2021-10-25 06:40 | NUR ---
Patient in room PCU 3016. I have received report from KENYETTA Li and had the opportunity to ask questions and assume patient care.
--- NOTE | 2021-10-25 06:58 | NUR ---
Problems reprioritized. Patient report given, questions answered & plan of care reviewed with Karely RN .
[2021-10-25 08:14] LABS: BASOPHILS # (AUTO) 0.1 X10'3 (0-0.2); BASOPHILS % (AUTO) 1.8 % (0-1); EOSINOPHILS # (AUTO) 0.2 X10'3 (0-0.9); EOSINOPHILS % (AUTO) 3.3 % (0-6); HEMOGLOBIN 11.3 g/dl (12.0-16.0); LYMPHOCYTES # (AUTO) 1.2 X10'3 (1.1-4.8); LYMPHOCYTES % (AUTO) 19.6 % (21-51); MEAN CORPUSCULAR HEMOGLOBIN 29.1 PG (27.0-31.0); MEAN CORPUSCULAR HGB CONC 33.2 g/dL (33.0-36.5); MEAN CORPUSCULAR VOLUME 87.8 FL (78-98); MEAN PLATELET VOLUME 11.1 FL (7.4-10.4); MONOCYTES # (AUTO) 0.6 X10'3 (0-0.9); MONOCYTES % (AUTO) 10.8 % (2-12); NEUTROPHILS # (AUTO) 3.8 X10'3 (1.8-7.7); NEUTROPHILS % (AUTO) 64.5 % (42-75); PLATELET COUNT 310 X10'3 (140-440); RED BLOOD COUNT 3.87 X10'6 (4.20-5.60); RED CELL DISTRIBUTION WIDTH 13.9 % (11.5-14.5); WHITE BLOOD COUNT 5.9 X10'3 (4.5-11.0)
[2021-10-25 08:26] LABS: ALANINE AMINOTRANSFERASE 20 U/L (12-78); ALBUMIN 2.6 G/DL (3.4-5.0); ALBUMIN/GLOBULIN RATIO 0.6 (1.1-1.5); ALKALINE PHOSPHATASE 61 IU/L (46-116); ANION GAP 13 (8-16); ASPARTATE AMINO TRANSFERASE 25 U/L (10-37); BILIRUBIN,TOTAL 0.3 MG/DL (0.1-1.0); BLOOD UREA NITROGEN 34 MG/DL (7-18); BUN/CREATININE RATIO 25.4 (6.6-38.0); CALCIUM 9.8 MG/DL (8.5-10.1); CHLORIDE 110 MMOL/L (99-107); CREATININE 1.34 MG/DL (0.40-0.90); GLUCOSE 96 MG/DL (70-104); POTASSIUM 3.9 MMOL/L (3.5-5.1); SODIUM 145 MMOL/L (135-145); TOTAL CARBON DIOXIDE 22.3 MMOL/L (24-32); TOTAL PROTEIN 6.8 G/DL (6.4-8.2); eGFR 38 ML/MIN
[2021-10-25 09:10] LABS: LARGE PLATELETS FEW; PLATELET ESTIMATE NORMAL
[2021-10-25] MEDS: lisinopril 20mg tablet PO SCH (10:00)
[2021-10-25] MEDS: carvedilol 6.25mg tablet PO SCH ×2 (10:00→21:16)
[2021-10-25] MEDS: lactobacillus rhamnosus 10,000 MMU CELLS/CAPSULE PO SCH ×2 (10:00→21:16)
[2021-10-25] MEDS: pantoprazole 40mg Tablet.DR PO SCH (10:00)
[2021-10-25] MEDS: heparin, porcine 5000 units/ml vial SQ SCH ×2 (10:01→21:17)
[2021-10-25 11:00] VITALS: BP 95/42
[2021-10-25] MEDS: insulin Lispro (HumaLOG) vial - multi-dose SQ SCH (13:31)
--- NOTE | 2021-10-25 14:40 | NUR ---
Reassessment: Pt remains A/O x 2 and confused per physical assessment. Noted pt has been refusing most meals since 10/22 however up to 100% PO intake at breakfast and lunch today. ONS still pending physician approval in EMR though may not be indicated if pt continues eating well. LBM 10/22, received first dose of PRN bowel care today. Will continue to follow and make recommendations as appropriate. Recommendations: 1) Advance to regular diet in view of geriatric age and poor PO intake; texture modification per ST 2) Ensure Enlive TID; pending MD verification in EMR though may not be indicated if PO intake continues to improve 3) Encourage PO intake and assist with meals 4) Routine bowel care 5) Weekly scaled weights Addendum: 10/25/21 at [address] Amended: Links added.
[2021-10-25 15:00] VITALS: BP 86/44
--- NOTE | 2021-10-25 18:15 | NUR ---
Problems reprioritized. Patient report given, questions answered & plan of care reviewed with KENYETTA Li.
[2021-10-25 18:30] VITALS: BP 105/45
--- NOTE | 2021-10-25 18:45 | NUR ---
Patient in room PCU 3016. I have received report from Karely KUMARI and had the opportunity to ask questions and assume patient care.
[2021-10-25] MEDS: insulin glargine (Lantus) pen - multi-dose SQ SCH (21:22)
[2021-10-25] MEDS: temazepam 15mg capsule PO PRN (21:27)
[2021-10-25 22:00] VITALS: BP 126/55
[2021-10-26 02:00] VITALS: BP 102/45
[2021-10-26] MEDS: LORazepam 2 mg/ml vial IV PRN (05:41)
[2021-10-26] MEDS ORDERED: LORazepam 2 mg/ml vial IV ONE (05:55)
[2021-10-26 06:00] VITALS: BP 132/58
--- NOTE | 2021-10-26 06:30 | NUR ---
Patient in room PCU 3016. I have received report from Guillermo KUMARI and had the opportunity to ask questions and assume patient care.
--- NOTE | 2021-10-26 06:57 | NUR ---
Problems reprioritized. Patient report given, questions answered & plan of care reviewed with Chantelle KUMARI.
[2021-10-26 07:22] LABS: BASOPHILS # (AUTO) 0.1 X10'3 (0-0.2); BASOPHILS % (AUTO) 0.8 % (0-1); EOSINOPHILS # (AUTO) 0.2 X10'3 (0-0.9); EOSINOPHILS % (AUTO) 1.6 % (0-6); HEMOGLOBIN 11.1 g/dl (12.0-16.0); LYMPHOCYTES # (AUTO) 1.2 X10'3 (1.1-4.8); LYMPHOCYTES % (AUTO) 10.8 % (21-51); MEAN CORPUSCULAR HEMOGLOBIN 28.9 PG (27.0-31.0); MEAN CORPUSCULAR HGB CONC 32.7 g/dL (33.0-36.5); MEAN CORPUSCULAR VOLUME 88.3 FL (78-98); MEAN PLATELET VOLUME 11.8 FL (7.4-10.4); MONOCYTES % (AUTO) 9.2 % (2-12); NEUTROPHILS # (AUTO) 8.4 X10'3 (1.8-7.7); NEUTROPHILS % (AUTO) 77.6 % (42-75); PLATELET COUNT 303 X10'3 (140-440); RED BLOOD COUNT 3.85 X10'6 (4.20-5.60); RED CELL DISTRIBUTION WIDTH 13.5 % (11.5-14.5); WHITE BLOOD COUNT 10.8 X10'3 (4.5-11.0)
[2021-10-26 07:38] LABS: ALANINE AMINOTRANSFERASE 34 U/L (12-78); ALBUMIN 2.6 G/DL (3.4-5.0); ALBUMIN/GLOBULIN RATIO 0.7 (1.1-1.5); ALKALINE PHOSPHATASE 60 IU/L (46-116); ANION GAP 12 (8-16); ASPARTATE AMINO TRANSFERASE 38 U/L (10-37); BILIRUBIN,TOTAL 0.3 MG/DL (0.1-1.0); BLOOD UREA NITROGEN 47 MG/DL (7-18); CALCIUM 9.5 MG/DL (8.5-10.1); CHLORIDE 105 MMOL/L (99-107); CREATININE 1.74 MG/DL (0.40-0.90); GLUCOSE 167 MG/DL (70-104); POTASSIUM 4.2 MMOL/L (3.5-5.1); SODIUM 140 MMOL/L (135-145); TOTAL CARBON DIOXIDE 23.3 MMOL/L (24-32); TOTAL PROTEIN 6.5 G/DL (6.4-8.2); eGFR 28 ML/MIN
--- NOTE | 2021-10-26 07:38 | NUR ---
Patient drowsy at this time, disoriented to place, time, and event. Sitter at bedside present
[2021-10-26 07:55] LABS: LARGE PLATELETS FEW; PLATELET ESTIMATE NORMAL
[2021-10-26] MEDS: carvedilol 6.25mg tablet PO SCH ×2 (09:29→20:00)
[2021-10-26] MEDS: lactobacillus rhamnosus 10,000 MMU CELLS/CAPSULE PO SCH ×2 (09:30→20:00)
[2021-10-26] MEDS: pantoprazole 40mg Tablet.DR PO SCH (09:30)
[2021-10-26] MEDS: lisinopril 20mg tablet PO SCH (09:31)
[2021-10-26] MEDS: heparin, porcine 5000 units/ml vial SQ SCH ×2 (09:31→20:00)
[2021-10-26] MEDS ORDERED: normal saline 1000ml 1,000 ML IV SCH (09:45)
[2021-10-26 11:00] VITALS: BP 148/63
[2021-10-26 15:00] VITALS: BP 138/85
--- NOTE | 2021-10-26 18:40 | NUR ---
Problems reprioritized. Patient report given, questions answered & plan of care reviewed with Guillermo KUMARI.
--- NOTE | 2021-10-26 18:41 | NUR ---
Patient in room PCU 3016. I have received report from Chantelle KUMARI and had the opportunity to ask questions and assume patient care.
--- NOTE | 2021-10-26 19:12 | NUR ---
patient refused vitals, all care. attempting to get out of bed and swiping at PCT. Will contact Dr. Otero once report is finished
[2021-10-26] MEDS ORDERED: haloperidol lactate 5mg/ml inj IM ONE (19:40)
[2021-10-26] MEDS: insulin glargine (Lantus) pen - multi-dose SQ SCH (21:00)
[2021-10-26 22:00] VITALS: BP 149/67
[2021-10-27] VITALS (7 sets, daily range): BP systolic 14–141; BP diastolic 46–64
[2021-10-27] MEDS ORDERED: haloperidol lactate 5mg/ml inj IM ONE (04:35)
--- NOTE | 2021-10-27 07:00 | NUR ---
Patient in room PCU 3016. I have received report from Guillermo KUMARI and had the opportunity to ask questions and assume patient care.
--- NOTE | 2021-10-27 07:09 | NUR ---
Problems reprioritized. Patient report given, questions answered & plan of care reviewed with Paulina KUMARI.
[2021-10-27 07:34] LABS: BASOPHILS # (AUTO) 0.1 X10'3 (0-0.2); BASOPHILS % (AUTO) 0.9 % (0-1); EOSINOPHILS # (AUTO) 0.1 X10'3 (0-0.9); EOSINOPHILS % (AUTO) 1.7 % (0-6); HEMATOCRIT 30.6 % (35.0-45.0); HEMOGLOBIN 9.9 g/dl (12.0-16.0); LYMPHOCYTES % (AUTO) 12.5 % (21-51); MEAN CORPUSCULAR HEMOGLOBIN 28.9 PG (27.0-31.0); MEAN CORPUSCULAR HGB CONC 32.5 g/dL (33.0-36.5); MEAN PLATELET VOLUME 11.1 FL (7.4-10.4); MONOCYTES # (AUTO) 0.9 X10'3 (0-0.9); MONOCYTES % (AUTO) 10.6 % (2-12); NEUTROPHILS # (AUTO) 6.2 X10'3 (1.8-7.7); NEUTROPHILS % (AUTO) 74.3 % (42-75); PLATELET COUNT 283 X10'3 (140-440); RED BLOOD COUNT 3.44 X10'6 (4.20-5.60); WHITE BLOOD COUNT 8.3 X10'3 (4.5-11.0)
[2021-10-27 07:51] LABS: ALANINE AMINOTRANSFERASE 31 U/L (12-78); ALBUMIN 2.6 G/DL (3.4-5.0); ALBUMIN/GLOBULIN RATIO 0.7 (1.1-1.5); ALKALINE PHOSPHATASE 58 IU/L (46-116); ANION GAP 12 (8-16); ASPARTATE AMINO TRANSFERASE 26 U/L (10-37); BILIRUBIN,TOTAL 0.3 MG/DL (0.1-1.0); BLOOD UREA NITROGEN 31 MG/DL (7-18); BUN/CREATININE RATIO 24.8 (6.6-38.0); CALCIUM 9.4 MG/DL (8.5-10.1); CHLORIDE 110 MMOL/L (99-107); CREATININE 1.25 MG/DL (0.40-0.90); GLUCOSE 121 MG/DL (70-104); POTASSIUM 4.2 MMOL/L (3.5-5.1); SODIUM 144 MMOL/L (135-145); TOTAL CARBON DIOXIDE 21.8 MMOL/L (24-32); TOTAL PROTEIN 6.1 G/DL (6.4-8.2); eGFR 41 ML/MIN
[2021-10-27] MEDS: sodium bicarbonate (8.4%) inj. 100 MEQ in dextrose 5%-water 1,000 ML IV SCH ×2 (08:20→19:20)
[2021-10-27] MEDS: heparin, porcine 5000 units/ml vial SQ SCH ×2 (09:24→20:35)
[2021-10-27] MEDS: carvedilol 6.25mg tablet PO SCH ×2 (09:27→20:35)
[2021-10-27] MEDS: lactobacillus rhamnosus 10,000 MMU CELLS/CAPSULE PO SCH ×2 (09:27→20:34)
[2021-10-27] MEDS: pantoprazole 40mg Tablet.DR PO SCH (09:27)
[2021-10-27] MEDS: lisinopril 20mg tablet PO SCH (09:28)
[2021-10-27 09:53] LABS: LARGE PLATELETS FEW; PLATELET ESTIMATE NORMAL; POIKILOCYTOSIS FEW
--- NOTE | 2021-10-27 19:06 | NUR ---
Problems reprioritized. Patient report given, questions answered & plan of care reviewed with Blanca KUMARI [].
[2021-10-27] MEDS: insulin glargine (Lantus) pen - multi-dose SQ SCH (21:48)
[2021-10-28] MEDS: normal saline 1000ml 1,000 ML IV SCH ×2 (01:00→10:10)
[2021-10-28 06:00] VITALS: BP 97/50
--- NOTE | 2021-10-28 06:29 | NUR ---
Problems reprioritized. Patient report given, questions answered & plan of care reviewed with Michel.
[2021-10-28 06:48] LABS: BASOPHILS # (AUTO) 0.1 X10'3 (0-0.2); EOSINOPHILS # (AUTO) 0.2 X10'3 (0-0.9); EOSINOPHILS % (AUTO) 2.5 % (0-6); HEMOGLOBIN 10.1 g/dl (12.0-16.0); LYMPHOCYTES # (AUTO) 1.2 X10'3 (1.1-4.8); LYMPHOCYTES % (AUTO) 18.4 % (21-51); MEAN CORPUSCULAR HEMOGLOBIN 29.5 PG (27.0-31.0); MEAN CORPUSCULAR HGB CONC 33.6 g/dL (33.0-36.5); MEAN CORPUSCULAR VOLUME 87.9 FL (78-98); MEAN PLATELET VOLUME 10.8 FL (7.4-10.4); MONOCYTES # (AUTO) 0.6 X10'3 (0-0.9); MONOCYTES % (AUTO) 9.8 % (2-12); NEUTROPHILS # (AUTO) 4.5 X10'3 (1.8-7.7); NEUTROPHILS % (AUTO) 68.3 % (42-75); PLATELET COUNT 286 X10'3 (140-440); RED BLOOD COUNT 3.41 X10'6 (4.20-5.60); RED CELL DISTRIBUTION WIDTH 14.1 % (11.5-14.5); WHITE BLOOD COUNT 6.6 X10'3 (4.5-11.0)
[2021-10-28 07:03] LABS: ALANINE AMINOTRANSFERASE 28 U/L (12-78); ALBUMIN 2.3 G/DL (3.4-5.0); ALBUMIN/GLOBULIN RATIO 0.7 (1.1-1.5); ALKALINE PHOSPHATASE 53 IU/L (46-116); ANION GAP 8 (8-16); ASPARTATE AMINO TRANSFERASE 25 U/L (10-37); BILIRUBIN,TOTAL 0.2 MG/DL (0.1-1.0); BLOOD UREA NITROGEN 24 MG/DL (7-18); BUN/CREATININE RATIO 19.4 (6.6-38.0); CHLORIDE 107 MMOL/L (99-107); CREATININE 1.24 MG/DL (0.40-0.90); GLUCOSE 239 MG/DL (70-104); POTASSIUM 3.7 MMOL/L (3.5-5.1); SODIUM 143 MMOL/L (135-145); TOTAL CARBON DIOXIDE 28.5 MMOL/L (24-32); TOTAL PROTEIN 5.8 G/DL (6.4-8.2); eGFR 42 ML/MIN
[2021-10-28] MEDS: sodium bicarbonate (8.4%) inj. 100 MEQ in dextrose 5%-water 1,000 ML IV SCH (08:32)
[2021-10-28] MEDS: heparin, porcine 5000 units/ml vial SQ SCH ×2 (08:33→21:41)
[2021-10-28] MEDS: pantoprazole 40mg Tablet.DR PO SCH (08:33)
[2021-10-28] MEDS: lisinopril 20mg tablet PO SCH (08:34)
[2021-10-28] MEDS: carvedilol 6.25mg tablet PO SCH ×2 (08:34→21:40)
[2021-10-28] MEDS: lactobacillus rhamnosus 10,000 MMU CELLS/CAPSULE PO SCH ×2 (08:34→21:40)
[2021-10-28] MEDS: insulin Lispro (HumaLOG) vial - multi-dose SQ SCH (09:12)
[2021-10-28 11:00] VITALS: BP 90/46
[2021-10-28 15:00] VITALS: BP 126/56
[2021-10-28 18:00] VITALS: BP 163/83
[2021-10-28] MEDS: insulin glargine (Lantus) pen - multi-dose SQ SCH (21:31)
[2021-10-28] MEDS: hydrOXYzine 10 MG tablet PO PRN (21:40)
[2021-10-28] MEDS: hydrALAZINE 20mg/ml inj. IV PRN (21:51)
[2021-10-28 22:00] VITALS: BP 127/56
[2021-10-29 02:00] VITALS: BP 124/49
[2021-10-29 06:00] VITALS: BP 124/56
[2021-10-29 06:00] LABS: BASOPHILS # (AUTO) 0.1 X10'3 (0-0.2); BASOPHILS % (AUTO) 1.2 % (0-1); EOSINOPHILS # (AUTO) 0.2 X10'3 (0-0.9); EOSINOPHILS % (AUTO) 2.8 % (0-6); HEMATOCRIT 30.9 % (35.0-45.0); HEMOGLOBIN 10.1 g/dl (12.0-16.0); LYMPHOCYTES # (AUTO) 1.7 X10'3 (1.1-4.8); LYMPHOCYTES % (AUTO) 27.3 % (21-51); MEAN CORPUSCULAR HEMOGLOBIN 28.9 PG (27.0-31.0); MEAN CORPUSCULAR HGB CONC 32.7 g/dL (33.0-36.5); MEAN CORPUSCULAR VOLUME 88.3 FL (78-98); MEAN PLATELET VOLUME 10.7 FL (7.4-10.4); MONOCYTES # (AUTO) 0.6 X10'3 (0-0.9); MONOCYTES % (AUTO) 10.1 % (2-12); NEUTROPHILS # (AUTO) 3.7 X10'3 (1.8-7.7); NEUTROPHILS % (AUTO) 58.6 % (42-75); PLATELET COUNT 309 X10'3 (140-440); RED CELL DISTRIBUTION WIDTH 13.8 % (11.5-14.5); WHITE BLOOD COUNT 6.4 X10'3 (4.5-11.0)
[2021-10-29 06:20] LABS: ALANINE AMINOTRANSFERASE 21 U/L (12-78); ALBUMIN 2.4 G/DL (3.4-5.0); ALBUMIN/GLOBULIN RATIO 0.7 (1.1-1.5); ALKALINE PHOSPHATASE 53 IU/L (46-116); ANION GAP 6 (8-16); ASPARTATE AMINO TRANSFERASE 18 U/L (10-37); BILIRUBIN,TOTAL 0.3 MG/DL (0.1-1.0); BLOOD UREA NITROGEN 22 MG/DL (7-18); BUN/CREATININE RATIO 15.8 (6.6-38.0); CALCIUM 9.2 MG/DL (8.5-10.1); CHLORIDE 111 MMOL/L (99-107); CREATININE 1.39 MG/DL (0.40-0.90); GLUCOSE 103 MG/DL (70-104); POTASSIUM 3.7 MMOL/L (3.5-5.1); SODIUM 145 MMOL/L (135-145); TOTAL CARBON DIOXIDE 27.6 MMOL/L (24-32); TOTAL PROTEIN 5.9 G/DL (6.4-8.2); eGFR 36 ML/MIN
[2021-10-29] MEDS: lisinopril 20mg tablet PO SCH (07:47)
[2021-10-29] MEDS: pantoprazole 40mg Tablet.DR PO SCH (07:47)
[2021-10-29] MEDS: carvedilol 6.25mg tablet PO SCH ×2 (07:47→21:50)
[2021-10-29] MEDS: lactobacillus rhamnosus 10,000 MMU CELLS/CAPSULE PO SCH ×2 (07:47→20:00)
[2021-10-29] MEDS: heparin, porcine 5000 units/ml vial SQ SCH ×2 (07:48→20:00)
[2021-10-29 11:00] VITALS: BP 128/53
--- NOTE | 2021-10-29 11:39 | NUR ---
Reassessment: Pt remains A/O x 2 and confused per physical assessment. Currently on CCHO/EC7 diet w/ moderate PO intake, avg 44% x 11 meals partially meeting needs; needs feeder. Noted ONS remains unverified in EMR, d/w RN that pt can still benefit from ONS. LBM 10/25 receiving PRN bowel care. No change to recommendations at this time, will continue to monitor. Recommendations: 1) Advance to regular diet in view of geriatric age and poor PO intake; texture modification per ST 2) Ensure Enlive TID; if PO intake improves may d/c or change to glucerna indicated if PO intake continues to improve 3) Encourage PO intake and assist with meals 4) Routine bowel care 5) Weekly scaled weights Addendum: 10/29/21 at [address] Amended: Links added.
[2021-10-29] MEDS: lactose-reduced food (Ensure Enlive) - 237ml bottle PO SCH ×2 (13:16→18:29)
[2021-10-29] MEDS: normal saline 1000ml 1,000 ML IV SCH (13:16)
[2021-10-29 15:00] VITALS: BP 126/54
[2021-10-29] MEDS: LORazepam 2 mg/ml vial IV PRN (16:19)
[2021-10-29] MEDS: hydrOXYzine 10 MG tablet PO PRN (21:49)
[2021-10-29] MEDS: insulin glargine (Lantus) pen - multi-dose SQ SCH (21:55)
[2021-10-29 22:00] VITALS: BP 174/67
[2021-10-30] VITALS (7 sets, daily range): BP systolic 105–146; BP diastolic 47–76
[2021-10-30] MEDS: hydrALAZINE 20mg/ml inj. IV PRN (02:27)
[2021-10-30] MEDS: normal saline 1000ml 1,000 ML IV SCH ×2 (03:21→15:05)
[2021-10-30] MEDS: lactobacillus rhamnosus 10,000 MMU CELLS/CAPSULE PO SCH ×2 (08:13→19:07)
[2021-10-30] MEDS: heparin, porcine 5000 units/ml vial SQ SCH ×2 (08:13→19:07)
[2021-10-30] MEDS: lisinopril 20mg tablet PO SCH (08:13)
[2021-10-30] MEDS: carvedilol 6.25mg tablet PO SCH ×2 (08:13→19:08)
[2021-10-30] MEDS: pantoprazole 40mg Tablet.DR PO SCH (08:13)
[2021-10-30] MEDS: lactose-reduced food (Ensure Enlive) - 237ml bottle PO SCH ×3 (08:14→18:48)
[2021-10-30] MEDS: insulin Lispro (HumaLOG) vial - multi-dose SQ SCH ×3 (12:21→19:12)
[2021-10-30] MEDS: LORazepam 2 mg/ml vial IV PRN (17:12)
[2021-10-30] MEDS: insulin glargine (Lantus) pen - multi-dose SQ SCH (21:38)
--- NOTE | 2021-10-30 21:58 | NUR ---
2130 - pt glucose at 30 with double check. pt asymptomatic. able to drink 2 dex bottles w/o difficulty. "i just want to be left alone." rechecked levels per protocol. pt able to drink 1/2 milk as well. lantus given. will continue to monitor glucose through the night.
[2021-10-31 02:45] VITALS: BP 120/47
[2021-10-31] MEDS: normal saline 1000ml 1,000 ML IV SCH (04:25)
--- NOTE | 2021-10-31 06:31 | NUR ---
pt scanned for 595ml in bladder. distended and pressure noted by patient. up to bathroom and voided 150ml. reported to day RN to watch post void residual.
[2021-10-31 07:40] LABS: BASOPHILS # (AUTO) 0.1 X10'3 (0-0.2); EOSINOPHILS # (AUTO) 0.2 X10'3 (0-0.9); EOSINOPHILS % (AUTO) 2.8 % (0-6); HEMATOCRIT 29.9 % (35.0-45.0); HEMOGLOBIN 9.9 g/dl (12.0-16.0); LYMPHOCYTES # (AUTO) 1.6 X10'3 (1.1-4.8); LYMPHOCYTES % (AUTO) 26.2 % (21-51); MEAN CORPUSCULAR HEMOGLOBIN 29.1 PG (27.0-31.0); MEAN CORPUSCULAR HGB CONC 33.2 g/dL (33.0-36.5); MEAN CORPUSCULAR VOLUME 87.7 FL (78-98); MEAN PLATELET VOLUME 10.7 FL (7.4-10.4); MONOCYTES # (AUTO) 0.5 X10'3 (0-0.9); MONOCYTES % (AUTO) 8.9 % (2-12); NEUTROPHILS # (AUTO) 3.7 X10'3 (1.8-7.7); NEUTROPHILS % (AUTO) 61.1 % (42-75); PLATELET COUNT 295 X10'3 (140-440); RED BLOOD COUNT 3.41 X10'6 (4.20-5.60); RED CELL DISTRIBUTION WIDTH 13.8 % (11.5-14.5); WHITE BLOOD COUNT 6.1 X10'3 (4.5-11.0)
[2021-10-31 08:06] LABS: ALANINE AMINOTRANSFERASE 21 U/L (12-78); ALBUMIN 2.5 G/DL (3.4-5.0); ALBUMIN/GLOBULIN RATIO 0.8 (1.1-1.5); ALKALINE PHOSPHATASE 52 IU/L (46-116); ANION GAP 9 (8-16); ASPARTATE AMINO TRANSFERASE 22 U/L (10-37); BILIRUBIN,TOTAL 0.2 MG/DL (0.1-1.0); BLOOD UREA NITROGEN 25 MG/DL (7-18); BUN/CREATININE RATIO 19.7 (6.6-38.0); CHLORIDE 108 MMOL/L (99-107); CREATININE 1.27 MG/DL (0.40-0.90); GLUCOSE 170 MG/DL (70-104); POTASSIUM 3.8 MMOL/L (3.5-5.1); SODIUM 143 MMOL/L (135-145); TOTAL CARBON DIOXIDE 26.4 MMOL/L (24-32); TOTAL PROTEIN 5.8 G/DL (6.4-8.2); eGFR 40 ML/MIN
[2021-10-31 08:26] LABS: LARGE PLATELETS FEW; PLATELET ESTIMATE NORMAL
[2021-10-31 08:50] VITALS: BP_SYST 118
[2021-10-31] MEDS: pantoprazole 40mg Tablet.DR PO SCH (08:50)
[2021-10-31] MEDS: lactobacillus rhamnosus 10,000 MMU CELLS/CAPSULE PO SCH (08:50)
[2021-10-31] MEDS: lisinopril 20mg tablet PO SCH (08:50)
[2021-10-31] MEDS: heparin, porcine 5000 units/ml vial SQ SCH (08:51)
[2021-10-31] MEDS: lactose-reduced food (Ensure Enlive) - 237ml bottle PO SCH ×2 (08:51→13:00)
[2021-10-31] MEDS: carvedilol 6.25mg tablet PO SCH (08:51)
[2021-10-31] MEDS: insulin Lispro (HumaLOG) vial - multi-dose SQ SCH (10:28)
[2021-10-31] MEDS ORDERED: PANT40TA54 PO ×2 (11:51)
--- NOTE | 2021-10-31 14:04 | NUR ---
PATIENT TO BE DISCHARGE TODAY TO [facility]. MEDICALLY STABLE PER DR. ABREU. VITALS REMAIN STABLE . BLOOD SUGAR REMAIN NORMAL RANGE. SAFETY MEASURE CONTINUE TO MAINTAIN FOR THE HX OF DEMENTIA. REPORT GIVEN TO CARLIE RANDHAWA AT THE [facility].
[2021-10-31] MEDS ORDERED: TEMA15CA5 PO (19:59)
[2021-10-31] MEDS ORDERED: PANT-47 PO (22:07)
== END 2021-10-31 14:35 | DRG 91 ==
LOC: ER 16:15 → UNDOADMIN 21:40 → ED HOLD 21:40 → EDBEDREQ 10-15 00:04 → ED HOLD 10-15 17:05 → PCU 3S 10-15 17:05
PROVIDERS: ADMIT Family Medicine; ATTEND Family Medicine
PROC: 4A10X4Z Monitoring of Central Nervous Electrical Activity, External Approach (ICD-10-PCS; principal; 2021-10-19)
DX: G92.8 Other toxic encephalopathy (principal); N17.0 Acute kidney failure with tubular necrosis; I16.1 Hypertensive emergency; I13.0 Hypertensive heart and chronic kidney disease with heart failure and stage 1 through stage 4 chronic kidney disease, or unspecified chronic kidney disease; E87.0 Hyperosmolality and hypernatremia; Z20.822 Contact with and (suspected) exposure to COVID-19; E11.22 Type 2 diabetes mellitus with diabetic chronic kidney disease; E78.5 Hyperlipidemia, unspecified; E11.65 Type 2 diabetes mellitus with hyperglycemia; E86.0 Dehydration; I95.9 Hypotension, unspecified; Z60.2 Problems related to living alone; W18.39XA Other fall on same level, initial encounter; M25.531 Pain in right wrist; I25.10 Atherosclerotic heart disease of native coronary artery without angina pectoris; I50.9 Heart failure, unspecified; N18.9 Chronic kidney disease, unspecified; Z78.1 Physical restraint status; Z79.899 Other long term (current) drug therapy; Z86.73 Personal history of transient ischemic attack (TIA), and cerebral infarction without residual deficits; I25.2 Old myocardial infarction; Z90.710 Acquired absence of both cervix and uterus; Z95.1 Presence of aortocoronary bypass graft; Y93.89 Activity, other specified; Y92.89 Other specified places as the place of occurrence of the external cause; Y99.8 Other external cause status
CPT/HCPCS: 36415; 70450; 71045; 72125; 73090; 80048; 80053; 80061; 81001; 82948; 83036; 83605; 83690; 83735; 83880; 84100; 84443; 84484; 85008; 85025; 85379; 85610; 85730; 87040; 87088; 87635; 92508; 92616; 93005; 93971; 95816; 96360; 96361; 97116; 97161; 97530; 97535; 99285; G0378; J0360; J0696; J1630; J1644; J1815; J2060; J3490; J7030; J7070

== ENCOUNTER 2022-04-16 21:22 | Inpatient (IN) | payer MEDICARE, OTHER ==
[~2022-04-16] VITALS: Ht 162.6 cm; Wt 72.3 kg
[~2022-04-16 21:22] MED LIST changes: -ASPI-1071 PO; -CEPH-585 PO; -INSU100I31 PO; -INSU100V13 SQ; -LACT1CAP26 PO; -MAGN400C PO; -NITR0.4T51 SL; +PANT-47 PO; -SITA50TA PO
[2022-04-16 22:25] LABS: BASOPHILS % (AUTO) 0.4 % (0-1); EOSINOPHILS # (AUTO) 0.2 X10'3 (0-0.9); EOSINOPHILS % (AUTO) 1.9 % (0-6); HEMATOCRIT 26.7 % (35.0-45.0); HEMOGLOBIN 8.8 g/dl (12.0-16.0); LYMPHOCYTES % (AUTO) 23.9 % (21-51); MEAN CORPUSCULAR HEMOGLOBIN 28.4 PG (27.0-31.0); MEAN CORPUSCULAR VOLUME 86.1 FL (78-98); MONOCYTES # (AUTO) 0.8 X10'3 (0-0.9); MONOCYTES % (AUTO) 9.7 % (2-12); NEUTROPHILS # (AUTO) 5.5 X10'3 (1.8-7.7); NEUTROPHILS % (AUTO) 64.1 % (42-75); PLATELET COUNT 254 X10'3 (140-440); WHITE BLOOD COUNT 8.6 X10'3 (4.5-11.0)
[2022-04-16 22:34] LABS: ALANINE AMINOTRANSFERASE 35 U/L (12-78); ALBUMIN 2.6 G/DL (3.4-5.0); ALBUMIN/GLOBULIN RATIO 0.6 (1.1-1.5); ALKALINE PHOSPHATASE 77 IU/L (46-116); ANION GAP 11 (8-16); ASPARTATE AMINO TRANSFERASE 22 U/L (10-37); BILIRUBIN,TOTAL 0.2 MG/DL (0.1-1.0); BLOOD UREA NITROGEN 57 MG/DL (7-18); CALCIUM 8.4 MG/DL (8.5-10.1); CHLORIDE 95 MMOL/L (99-107); CREATININE 3.36 MG/DL (0.40-0.90); GLUCOSE 221 MG/DL (70-104); POTASSIUM 4.1 MMOL/L (3.5-5.1); SODIUM 130 MMOL/L (135-145); TOTAL CARBON DIOXIDE 23.7 MMOL/L (24-32); TOTAL PROTEIN 6.7 G/DL (6.4-8.2); eGFR 13 ML/MIN
[2022-04-16 22:50] LABS: COLOR,URINE YELLOW (Yellow); GLUCOSE, URINE NEGATIVE (Neg); KETONES,URINE NEGATIVE (Neg); LEUKOCYTE ESTERASE ,URINE MODERATE (Neg); NITRITES, URINE NEGATIVE (Neg); OCCULT BLOOD,URINE TRACE-INTACT (Neg); PH,URINE 5.5 (4.8-8.0); PROTEIN,URINE 30 mg/dl (Neg); UROBILINOGEN,URINE 0.2 E.U/dL (0.2-1.0)
[2022-04-16 22:54] LABS: CLARITY,URINE SLIGHTLY CLOUDY (Clear); UA COLLECTION TYPE STRAIGHT CATH
[2022-04-16 22:55] LABS: BACTERIA,URINE 1+ /HPF (Neg); RBC,URINE 0-2 /HPF (0-2); SQUAMOUS EPITHELIAL CELL,UR FEW /LPF (FEW)
[2022-04-16] MEDS ORDERED: CefTRIAXone 2gm/NS 100ml IVPB 100 ML IV ONE (23:05)
[2022-04-16] MEDS ORDERED: normal saline 1000ML IV soln IV ONE (23:05)
[2022-04-16] MEDS ORDERED: FURO-150 PO (23:45)
[2022-04-16] MEDS ORDERED: AMA1T PO (23:45)
[2022-04-16] MEDS ORDERED: LISI20TA28 PO (23:45)
[2022-04-16] MEDS ORDERED: NITR50CA4 PO (23:45)
[2022-04-16] MEDS ORDERED: AMLO5TAB4 PO (23:45)
--- NOTE | 2022-04-17 00:50 | NUR ---
Advised [facility] the patient will be admitted.
--- NOTE | 2022-04-17 01:17 | NUR ---
Patient just back from CT, helped to the bedside commode and tucked back in bed w/o problem.
[2022-04-17] MEDS ORDERED: DEXTROSE 15 GM of carb/4 tabs (each vial/BOTTLE has 4 tablets) PO PRN ×2 (02:00)
[2022-04-17] MEDS ORDERED: glucagon, human recombinant 1mg kit SUBCUT PRN (02:00)
[2022-04-17] MEDS ORDERED: mag hydrox/Alum hydrox/simeth 30ml oral suspension PO PRN (02:00)
[2022-04-17] MEDS ORDERED: dextrose 50%-water 50ml dispensing syringe IV PRN ×2 (02:00)
[2022-04-17] MEDS ORDERED: magnesium hydroxide 30ml (MOM) UD suspension PO PRN (02:00)
[2022-04-17] MEDS: normal saline 1000ml 1,000 ML IV SCH ×3 (02:00→22:51)
[2022-04-17] MEDS ORDERED: ondansetron/PF 4mg/2ml inj IV PRN (02:00)
[2022-04-17] MEDS ORDERED: MESSAGE TO PHARMACY PO ONE (02:00)
--- NOTE | 2022-04-17 02:28 | NUR ---
Helped patient up to bedside commode w/o problem.
[2022-04-17 03:22] LABS: HEMOGLOBIN A1C 9.6 % (4.5-6.2)
[2022-04-17] MEDS ORDERED: QUET50TA24 PO (04:20)
[2022-04-17] MEDS ORDERED: METF-900 PO (04:20)
--- NOTE | 2022-04-17 04:59 | NUR ---
pt found out of bed, walking in hallway, very unsteady. pt taken back to her room in a w/c, used commode, put back to bed
--- NOTE | 2022-04-17 07:13 | NUR ---
PT ARRIVED from ED. Pt alert to self. Pt denies pain at this time. Oriented pt to room and placed call golden in reach.
[2022-04-17 07:21] VITALS: BP 140/68
[2022-04-17] MEDS: docusate sod 100mg capsule PO SCH ×2 (07:52→20:00)
[2022-04-17] MEDS: amLODIPine 5mg tablet PO SCH ×2 (07:52→08:30)
[2022-04-17] MEDS: carvedilol 6.25mg tablet PO SCH ×2 (07:52→20:39)
[2022-04-17] MEDS: heparin, porcine 5000 units/ml vial SQ SCH ×2 (07:53→20:42)
[2022-04-17] MEDS ORDERED: cefTRIAXone 1g/NS 100ml IVPB 100 ML IV SCH ×2 (08:00→12:20)
[2022-04-17] MEDS ORDERED: furosemide 20MG tablet PO SCH (08:00)
[2022-04-17] MEDS ORDERED: lisinopril 20mg tablet PO SCH (08:30)
[2022-04-17 10:00] VITALS: BP 131/62
[2022-04-17] MEDS: acetaminophen 325mg tablet PO PRN (10:04)
[2022-04-17] MEDS: QUEtiapine 25mg tablet PO SCH (10:57)
[2022-04-17] MEDS: pantoprazole 40mg Tablet.DR PO SCH (10:59)
--- NOTE | 2022-04-17 11:53 | NUR ---
DM consult: Pt with T2DM, current A1c is 9.6% which is fairly stable with A1c hx in EMR. Pt not appropriate for DM education at this time as pt with dementia and a poor historian per EMR. Written DM education with RD contact information placed in patient's chart. Will remain available. Addendum: 04/17/22 at [address] Amended: Links added.
--- NOTE | 2022-04-17 12:24 | NUR ---
PAGER ID: [phone] MESSAGE: Billie [phone] re: Amy Britton in 4010A. Pt already received a dose of Rocephin this morning at 0830. Do you still want this new dose that was just ordered?
[2022-04-17] MEDS: insulin Lispro (HumaLOG) vial - multi-dose SQ SCH (14:12)
[2022-04-17 18:00] VITALS: BP 104/81
[2022-04-17] MEDS: atorvastatin 20mg tablet PO SCH (20:40)
[2022-04-17] MEDS: insulin glargine (Lantus) pen - multi-dose SQ SCH (20:49)
[2022-04-17 22:00] VITALS: BP 128/56
--- NOTE | 2022-04-18 06:58 | NUR ---
Patient in room ORTHO 4009. I have received report from KENYETTA Sam and had the opportunity to ask questions and assume patient care.
[2022-04-18 07:01] VITALS: BP 130/93
[2022-04-18 07:02] LABS: BASOPHILS % (AUTO) 0.7 % (0-1); EOSINOPHILS # (AUTO) 0.2 X10'3 (0-0.9); EOSINOPHILS % (AUTO) 2.7 % (0-6); HEMATOCRIT 26.2 % (35.0-45.0); HEMOGLOBIN 8.9 g/dl (12.0-16.0); LYMPHOCYTES # (AUTO) 1.5 X10'3 (1.1-4.8); LYMPHOCYTES % (AUTO) 24.2 % (21-51); MEAN CORPUSCULAR HEMOGLOBIN 29.2 PG (27.0-31.0); MEAN CORPUSCULAR HGB CONC 33.9 g/dL (33.0-36.5); MEAN CORPUSCULAR VOLUME 86.2 FL (78-98); MEAN PLATELET VOLUME 9.9 FL (7.4-10.4); MONOCYTES # (AUTO) 0.6 X10'3 (0-0.9); MONOCYTES % (AUTO) 9.5 % (2-12); NEUTROPHILS # (AUTO) 3.8 X10'3 (1.8-7.7); NEUTROPHILS % (AUTO) 62.9 % (42-75); PLATELET COUNT 299 X10'3 (140-440); RED BLOOD COUNT 3.04 X10'6 (4.20-5.60); RED CELL DISTRIBUTION WIDTH 14.2 % (11.5-14.5); WHITE BLOOD COUNT 6.1 X10'3 (4.5-11.0)
[2022-04-18 07:05] LABS: ALANINE AMINOTRANSFERASE 26 U/L (12-78); ALBUMIN 2.5 G/DL (3.4-5.0); ALBUMIN/GLOBULIN RATIO 0.6 (1.1-1.5); ALKALINE PHOSPHATASE 62 IU/L (46-116); ANION GAP 11 (8-16); ASPARTATE AMINO TRANSFERASE 14 U/L (10-37); BILIRUBIN,TOTAL 0.2 MG/DL (0.1-1.0); BLOOD UREA NITROGEN 41 MG/DL (7-18); BUN/CREATININE RATIO 18.3 (6.6-38.0); CALCIUM 8.4 MG/DL (8.5-10.1); CHLORIDE 109 MMOL/L (99-107); CREATININE 2.24 MG/DL (0.40-0.90); GLUCOSE 131 MG/DL (70-104); POTASSIUM 4.1 MMOL/L (3.5-5.1); SODIUM 145 MMOL/L (135-145); TOTAL CARBON DIOXIDE 24.7 MMOL/L (24-32); TOTAL PROTEIN 6.4 G/DL (6.4-8.2); eGFR 21 ML/MIN
[2022-04-18] MEDS: amLODIPine 5mg tablet PO SCH ×2 (08:00→08:40)
[2022-04-18] MEDS: docusate sod 100mg capsule PO SCH ×2 (08:00→20:00)
[2022-04-18] MEDS: insulin Lispro (HumaLOG) vial - multi-dose SQ SCH (08:36)
[2022-04-18] MEDS: cefTRIAXone 1g/NS 100ml IVPB 100 ML IV SCH (08:39)
[2022-04-18] MEDS: pantoprazole 40mg Tablet.DR PO SCH (08:40)
[2022-04-18] MEDS: QUEtiapine 25mg tablet PO SCH ×2 (08:41→12:50)
[2022-04-18] MEDS: carvedilol 6.25mg tablet PO SCH ×2 (08:41→20:54)
[2022-04-18] MEDS: nitrofurantoin macrocrystal 50mg capsule PO SCH (08:41)
[2022-04-18] MEDS: heparin, porcine 5000 units/ml vial SQ SCH ×2 (08:42→20:48)
[2022-04-18 10:00] VITALS: BP 140/90
--- NOTE | 2022-04-18 12:21 | NUR ---
PAGER ID: [phone] MESSAGE: Jennifer [phone] Amy Jarquin room 4009C is becoming very agitated trying to get out of bed wanting to go home. We are having a hard time keeping her in bed.
--- NOTE | 2022-04-18 12:21 | NUR ---
Amy is getting very agitated trying to get out of bed and screaming. Kai OLIVEIRA.
--- NOTE | 2022-04-18 13:42 | NUR ---
Patient was attempting to use silverware in an inappropriate way. Faxed request to dietary for caution shuy.
[2022-04-18] MEDS: normal saline 1000ml 1,000 ML IV SCH (15:35)
[2022-04-18 17:00] VITALS: BP 119/55
--- NOTE | 2022-04-18 18:36 | NUR ---
Patient in room ORTHO 4009. I have received report from KENYETTA EASON and had the opportunity to ask questions and assume patient care. Addendum: 04/18/22 at 1837 by Talisha Urbina RN Amended: Links added.
--- NOTE | 2022-04-18 18:38 | NUR ---
Problems reprioritized. Patient report given, questions answered & plan of care reviewed with KENYETTA Woodall.
--- NOTE | 2022-04-18 20:00 | NUR ---
AFTER TAKING FEW BITES OF APPLESAUCE SHE HAD GOTTEN ONE TYLENOL IN FOR PAIN AND ONE OF HER 2 LIPITOR PILLS SWALLOWED THEN REFUSED ALL OTHER MEDS SPIT THEM OUT.
[2022-04-18] MEDS: atorvastatin 20mg tablet PO SCH (21:00)
[2022-04-18] MEDS: acetaminophen 325mg tablet PO PRN (21:01)
[2022-04-18] MEDS: insulin glargine (Lantus) pen - multi-dose SQ SCH (21:07)
[2022-04-18 22:00] VITALS: BP 122/75
--- NOTE | 2022-04-19 01:00 | NUR ---
RESTING EYES CLOSED WITHOUT CHANGES AT THIS TIME.
[2022-04-19] MEDS: normal saline 1000ml 1,000 ML IV SCH ×2 (02:10→16:51)
[2022-04-19 06:00] VITALS: BP 143/62
[2022-04-19 06:02] LABS: BASOPHILS # (AUTO) 0.1 X10'3 (0-0.2); EOSINOPHILS # (AUTO) 0.2 X10'3 (0-0.9); EOSINOPHILS % (AUTO) 3.5 % (0-6); HEMATOCRIT 26.3 % (35.0-45.0); HEMOGLOBIN 8.8 g/dl (12.0-16.0); LYMPHOCYTES # (AUTO) 1.7 X10'3 (1.1-4.8); LYMPHOCYTES % (AUTO) 26.3 % (21-51); MEAN CORPUSCULAR HEMOGLOBIN 28.9 PG (27.0-31.0); MEAN CORPUSCULAR HGB CONC 33.5 g/dL (33.0-36.5); MEAN CORPUSCULAR VOLUME 86.3 FL (78-98); MEAN PLATELET VOLUME 9.7 FL (7.4-10.4); MONOCYTES # (AUTO) 0.6 X10'3 (0-0.9); MONOCYTES % (AUTO) 9.4 % (2-12); NEUTROPHILS # (AUTO) 3.8 X10'3 (1.8-7.7); NEUTROPHILS % (AUTO) 59.8 % (42-75); PLATELET COUNT 319 X10'3 (140-440); RED BLOOD COUNT 3.05 X10'6 (4.20-5.60); RED CELL DISTRIBUTION WIDTH 14.5 % (11.5-14.5); WHITE BLOOD COUNT 6.4 X10'3 (4.5-11.0)
--- NOTE | 2022-04-19 06:26 | NUR ---
Problems reprioritized. Patient report given, questions answered & plan of care reviewed with KENYETTA EASON. Addendum: 04/19/22 at 06 by Talisha Urbina RN Amended: Links added.
--- NOTE | 2022-04-19 06:32 | NUR ---
Patient in room ORTHO 4009. I have received report from KENYETTA Woodall and had the opportunity to ask questions and assume patient care.
[2022-04-19 06:38] LABS: ALANINE AMINOTRANSFERASE 21 U/L (12-78); ALBUMIN 2.4 G/DL (3.4-5.0); ALBUMIN/GLOBULIN RATIO 0.6 (1.1-1.5); ALKALINE PHOSPHATASE 58 IU/L (46-116); ANION GAP 9 (8-16); ASPARTATE AMINO TRANSFERASE 18 U/L (10-37); BILIRUBIN,TOTAL 0.3 MG/DL (0.1-1.0); BLOOD UREA NITROGEN 29 MG/DL (7-18); BUN/CREATININE RATIO 16.8 (6.6-38.0); CALCIUM 8.5 MG/DL (8.5-10.1); CHLORIDE 113 MMOL/L (99-107); CREATININE 1.73 MG/DL (0.40-0.90); GLUCOSE 121 MG/DL (70-104); POTASSIUM 3.5 MMOL/L (3.5-5.1); SODIUM 146 MMOL/L (135-145); TOTAL CARBON DIOXIDE 24.3 MMOL/L (24-32); TOTAL PROTEIN 6.5 G/DL (6.4-8.2); eGFR 28 ML/MIN
[2022-04-19] MEDS: amLODIPine 5mg tablet PO SCH ×2 (08:00→09:14)
[2022-04-19] MEDS: docusate sod 100mg capsule PO SCH ×2 (08:00→21:09)
[2022-04-19] MEDS: heparin, porcine 5000 units/ml vial SQ SCH ×2 (08:00→21:11)
[2022-04-19] MEDS: QUEtiapine 25mg tablet PO SCH ×2 (08:00→09:15)
[2022-04-19] MEDS: insulin Lispro (HumaLOG) vial - multi-dose SQ SCH ×2 (09:10→13:35)
[2022-04-19] MEDS: pantoprazole 40mg Tablet.DR PO SCH (09:15)
[2022-04-19] MEDS: carvedilol 6.25mg tablet PO SCH ×2 (09:15→21:10)
[2022-04-19] MEDS: cefTRIAXone 1g/NS 100ml IVPB 100 ML IV SCH (09:15)
[2022-04-19] MEDS: nitrofurantoin macrocrystal 50mg capsule PO SCH (09:15)
[2022-04-19 10:00] VITALS: BP 166/75
--- NOTE | 2022-04-19 17:57 | NUR ---
PAGER ID: [phone] MESSAGE: Jennifer [phone] RE: Amy Jarquin room 4017 - Blood glucose 48 at 1700. Treated according to protocol. Current blood glucose 107.
--- NOTE | 2022-04-19 17:57 | NUR ---
Blood glucose at 1700 was 48 and the patient was asymptomatic. Treated according to protocol (one treatment of 30gm) and current blood glucose is 107. Paged to notify.
[2022-04-19 18:00] VITALS: BP 147/69
--- NOTE | 2022-04-19 18:00 | NUR ---
Patient in room ORTHO 4017. I have received report from KENYETTA Rodriguez and had the opportunity to ask questions and assume patient care.
--- NOTE | 2022-04-19 18:45 | NUR ---
Problems reprioritized. Patient report given, questions answered & plan of care reviewed with ASHLEY Del Toro.
[2022-04-19 19:10] VITALS: BP 139/68
[2022-04-19] MEDS: insulin glargine (Lantus) pen - multi-dose SQ SCH (21:00)
[2022-04-19] MEDS: atorvastatin 20mg tablet PO SCH (21:11)
[2022-04-19 22:00] VITALS: BP 159/70
[2022-04-20] MEDS: normal saline 1000ml 1,000 ML IV SCH ×2 (01:56→17:30)
[2022-04-20 06:06] LABS: BASOPHILS # (AUTO) 0.1 X10'3 (0-0.2); BASOPHILS % (AUTO) 0.8 % (0-1); EOSINOPHILS # (AUTO) 0.2 X10'3 (0-0.9); EOSINOPHILS % (AUTO) 2.7 % (0-6); HEMATOCRIT 26.4 % (35.0-45.0); HEMOGLOBIN 8.7 g/dl (12.0-16.0); LYMPHOCYTES # (AUTO) 1.5 X10'3 (1.1-4.8); LYMPHOCYTES % (AUTO) 18.7 % (21-51); MEAN CORPUSCULAR HEMOGLOBIN 28.9 PG (27.0-31.0); MEAN CORPUSCULAR HGB CONC 32.9 g/dL (33.0-36.5); MEAN CORPUSCULAR VOLUME 87.7 FL (78-98); MEAN PLATELET VOLUME 9.9 FL (7.4-10.4); MONOCYTES # (AUTO) 0.6 X10'3 (0-0.9); MONOCYTES % (AUTO) 7.4 % (2-12); NEUTROPHILS # (AUTO) 5.7 X10'3 (1.8-7.7); NEUTROPHILS % (AUTO) 70.4 % (42-75); PLATELET COUNT 339 X10'3 (140-440); RED BLOOD COUNT 3.01 X10'6 (4.20-5.60); RED CELL DISTRIBUTION WIDTH 14.6 % (11.5-14.5); WHITE BLOOD COUNT 8.1 X10'3 (4.5-11.0)
[2022-04-20 06:20] LABS: ALANINE AMINOTRANSFERASE 22 U/L (12-78); ALBUMIN 2.4 G/DL (3.4-5.0); ALBUMIN/GLOBULIN RATIO 0.6 (1.1-1.5); ALKALINE PHOSPHATASE 56 IU/L (46-116); ANION GAP 9 (8-16); ASPARTATE AMINO TRANSFERASE 18 U/L (10-37); BILIRUBIN,TOTAL 0.3 MG/DL (0.1-1.0); BLOOD UREA NITROGEN 23 MG/DL (7-18); BUN/CREATININE RATIO 15.3 (6.6-38.0); CALCIUM 8.4 MG/DL (8.5-10.1); CHLORIDE 111 MMOL/L (99-107); GLUCOSE 162 MG/DL (70-104); POTASSIUM 3.9 MMOL/L (3.5-5.1); SODIUM 146 MMOL/L (135-145); TOTAL CARBON DIOXIDE 26.1 MMOL/L (24-32); TOTAL PROTEIN 6.2 G/DL (6.4-8.2); eGFR 33 ML/MIN
--- NOTE | 2022-04-20 06:25 | NUR ---
Problems reprioritized. Patient report given, questions answered & plan of care reviewed with KENYETTA Franklin.
--- NOTE | 2022-04-20 06:34 | NUR ---
patient refused 0600 vital signs Addendum: 04/20/22 at 0635 by Noemi Braxton RN incorrect patient
[2022-04-20 06:35] VITALS: BP 155/73
[2022-04-20] MEDS: docusate sod 100mg capsule PO SCH ×2 (08:00→20:29)
[2022-04-20] MEDS: amLODIPine 5mg tablet PO SCH ×2 (08:00→08:25)
[2022-04-20] MEDS: QUEtiapine 25mg tablet PO SCH ×2 (08:00→08:25)
[2022-04-20] MEDS: cefTRIAXone 1g/NS 100ml IVPB 100 ML IV SCH (08:22)
[2022-04-20] MEDS: nitrofurantoin macrocrystal 50mg capsule PO SCH (08:24)
[2022-04-20] MEDS: heparin, porcine 5000 units/ml vial SQ SCH ×2 (08:25→20:29)
[2022-04-20] MEDS: carvedilol 6.25mg tablet PO SCH ×2 (08:25→20:29)
[2022-04-20] MEDS: pantoprazole 40mg Tablet.DR PO SCH (08:25)
[2022-04-20 10:00] VITALS: BP 105/34
--- NOTE | 2022-04-20 17:08 | NUR ---
Patient has been following directions appropriately for this RN on this shift. Sitter was removed from room and bed alarm and tabs alarms were placed. Patient so far has been compliant with this and sitter remains not present at bedside.
[2022-04-20 18:00] VITALS: BP 157/54
--- NOTE | 2022-04-20 18:00 | NUR ---
Patient in room ORTHO 4017. I have received report from KENYETTA Franklin and had the opportunity to ask questions and assume patient care.
--- NOTE | 2022-04-20 18:37 | NUR ---
report given to ASHLEY Del Toro
[2022-04-20] MEDS: insulin Lispro (HumaLOG) vial - multi-dose SQ SCH (19:33)
[2022-04-20 20:20] VITALS: BP 145/64
[2022-04-20] MEDS: atorvastatin 20mg tablet PO SCH (20:30)
[2022-04-20] MEDS: insulin glargine (Lantus) pen - multi-dose SQ SCH (21:00)
[2022-04-20 21:29] LABS: % IRON SATURATION 27 % (11-46); IRON 50 UG/DL (49-151); TOTAL IRON BINDING CAPACITY 184 UG/DL (259-388)
[2022-04-20 22:00] VITALS: BP 137/63
--- NOTE | 2022-04-21 03:39 | NUR ---
AGREE WITH CMO & PRESIDENT PHYSICAL ASSESSMENT CHARTED
[2022-04-21 05:51] LABS: BASOPHILS # (AUTO) 0.1 X10'3 (0-0.2); BASOPHILS % (AUTO) 0.7 % (0-1); EOSINOPHILS # (AUTO) 0.3 X10'3 (0-0.9); HEMATOCRIT 23.8 % (35.0-45.0); LYMPHOCYTES # (AUTO) 2.1 X10'3 (1.1-4.8); LYMPHOCYTES % (AUTO) 24.2 % (21-51); MEAN CORPUSCULAR HEMOGLOBIN 29.3 PG (27.0-31.0); MEAN CORPUSCULAR HGB CONC 33.8 g/dL (33.0-36.5); MEAN CORPUSCULAR VOLUME 86.7 FL (78-98); MEAN PLATELET VOLUME 9.9 FL (7.4-10.4); MONOCYTES # (AUTO) 0.7 X10'3 (0-0.9); MONOCYTES % (AUTO) 8.1 % (2-12); NEUTROPHILS # (AUTO) 5.5 X10'3 (1.8-7.7); PLATELET COUNT 355 X10'3 (140-440); RED BLOOD COUNT 2.75 X10'6 (4.20-5.60); RED CELL DISTRIBUTION WIDTH 14.6 % (11.5-14.5); WHITE BLOOD COUNT 8.6 X10'3 (4.5-11.0)
[2022-04-21 06:00] VITALS: BP 143/65
[2022-04-21] MEDS: normal saline 1000ml 1,000 ML IV SCH ×2 (06:00→18:50)
--- NOTE | 2022-04-21 06:16 | NUR ---
Received patient report from KENYETTA Watkins. Addendum: 04/21/22 at 0617 by Maxim Matos LVN Received patient report from ASHLEY Del Toro
[2022-04-21 06:17] LABS: % IRON SATURATION 29 % (11-46); IRON 51 UG/DL (49-151); TOTAL IRON BINDING CAPACITY 175 UG/DL (259-388)
[2022-04-21 06:19] LABS: ALANINE AMINOTRANSFERASE 21 U/L (12-78); ALBUMIN 2.3 G/DL (3.4-5.0); ALBUMIN/GLOBULIN RATIO 0.6 (1.1-1.5); ALKALINE PHOSPHATASE 54 IU/L (46-116); ANION GAP 9 (8-16); ASPARTATE AMINO TRANSFERASE 20 U/L (10-37); BILIRUBIN,TOTAL 0.2 MG/DL (0.1-1.0); BLOOD UREA NITROGEN 22 MG/DL (7-18); BUN/CREATININE RATIO 14.7 (6.6-38.0); CALCIUM 8.3 MG/DL (8.5-10.1); CHLORIDE 112 MMOL/L (99-107); GLUCOSE 160 MG/DL (70-104); POTASSIUM 4.1 MMOL/L (3.5-5.1); SODIUM 145 MMOL/L (135-145); TOTAL CARBON DIOXIDE 23.9 MMOL/L (24-32); TOTAL PROTEIN 5.9 G/DL (6.4-8.2); eGFR 33 ML/MIN
--- NOTE | 2022-04-21 06:28 | NUR ---
Problems reprioritized. Patient report given, questions answered & plan of care reviewed with ASHLEY Mosqueda.
[2022-04-21] MEDS: cefTRIAXone 1g/NS 100ml IVPB 100 ML IV SCH (07:02)
--- NOTE | 2022-04-21 07:03 | NUR ---
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 don't know if you'd like ID to see her and make reccomendations. cheryl [phone]
[2022-04-21] MEDS: pantoprazole 40mg Tablet.DR PO SCH (07:33)
[2022-04-21] MEDS: docusate sod 100mg capsule PO SCH ×2 (07:33→19:51)
[2022-04-21] MEDS: QUEtiapine 25mg tablet PO SCH (07:33)
[2022-04-21] MEDS: nitrofurantoin macrocrystal 50mg capsule PO SCH (07:34)
[2022-04-21] MEDS: heparin, porcine 5000 units/ml vial SQ SCH ×2 (07:34→19:51)
[2022-04-21] MEDS: carvedilol 6.25mg tablet PO SCH ×2 (07:35→19:51)
[2022-04-21] MEDS: amLODIPine 5mg tablet PO SCH (07:48)
[2022-04-21] MEDS: insulin Lispro (HumaLOG) vial - multi-dose SQ SCH ×3 (08:38→19:53)
--- NOTE | 2022-04-21 09:01 | NUR ---
Initial: Pt admitted w/ [facility] per EMR. Currently on Carb control diet w/ avg intake 35% x 11 meals not meeting needs. Documented to be A&O x 1 and confused though independent w/ meals. Recommend assisting w/ meals. Pt has previous hx of very poor PO intake for prolonged period of time (about 1 month) on prior admit earlier this year. Recommend BSS w/ MACHINIST INSTRUCTOR given pt previously required MM5 diet. Also recommend liberalizing to Regular diet given poor PO this admit and hx of poor PO intake. Pt mostly refused ONS prior admit so do not recommend adding ONS at this time. Given the above information, recommend initiating nutrition support to assist w/ meeting pt's nutritional needs. LBM 04/19. Will continue to monitor. Recs: 1) Liberalize to Regular diet given poor PO, BSS w/ MACHINIST INSTRUCTOR to determine appropriate texture modification; assist w/ meals 2) Initiate EN if within POC and MD agreeable hx of poor PO intake; IF EN, continuous Jevity 1.2 with 50 mL/hr goal rate to provide 1200ml volume, 1440kcals, 67g protein, 968ml free water. IF EN, additional 100 mL water flush Q4H 3) No ONS at this time, pt previously refused them 4) Bowel care per rx 5) Scaled wt this admit Addendum: 04/21/22 at [address] Amended: Links added.
[2022-04-21 10:00] VITALS: BP 149/50
--- NOTE | 2022-04-21 11:22 | NUR ---
Spoke to patients son and admin at [facility], patient lives at [facility] and has since december.
[2022-04-21 18:00] VITALS: BP 157/71
--- NOTE | 2022-04-21 18:09 | NUR ---
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
--- NOTE | 2022-04-21 18:12 | NUR ---
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 on Rocephin. thanks [phone] [phone]
--- NOTE | 2022-04-21 18:15 | NUR ---
Patient report was given to KENYETTA Du
[2022-04-21] MEDS: sulfamethoxazole/trimethoprim DS (800/160mg) tablet PO SCH (19:51)
[2022-04-21] MEDS: atorvastatin 20mg tablet PO SCH (21:53)
[2022-04-21] MEDS: insulin glargine (Lantus) pen - multi-dose SQ SCH (21:56)
[2022-04-21 22:00] VITALS: BP 141/64
[2022-04-22 06:00] VITALS: BP 143/70
--- NOTE | 2022-04-22 06:15 | NUR ---
Problems reprioritized. Patient report given, questions answered & plan of care reviewed with BIENVENIDO/SHAHRAM KUMARI.
[2022-04-22 06:19] LABS: BASOPHILS # (AUTO) 0.1 X10'3 (0-0.2); EOSINOPHILS # (AUTO) 0.2 X10'3 (0-0.9); EOSINOPHILS % (AUTO) 3.2 % (0-6); HEMATOCRIT 25.5 % (35.0-45.0); HEMOGLOBIN 8.5 g/dl (12.0-16.0); LYMPHOCYTES # (AUTO) 1.8 X10'3 (1.1-4.8); LYMPHOCYTES % (AUTO) 27.5 % (21-51); MEAN CORPUSCULAR HEMOGLOBIN 29.1 PG (27.0-31.0); MEAN CORPUSCULAR HGB CONC 33.3 g/dL (33.0-36.5); MEAN CORPUSCULAR VOLUME 87.6 FL (78-98); MEAN PLATELET VOLUME 8.9 FL (7.4-10.4); MONOCYTES # (AUTO) 0.5 X10'3 (0-0.9); MONOCYTES % (AUTO) 7.8 % (2-12); NEUTROPHILS % (AUTO) 60.5 % (42-75); PLATELET COUNT 362 X10'3 (140-440); RED BLOOD COUNT 2.91 X10'6 (4.20-5.60); RED CELL DISTRIBUTION WIDTH 14.7 % (11.5-14.5); WHITE BLOOD COUNT 6.7 X10'3 (4.5-11.0)
--- NOTE | 2022-04-22 06:29 | NUR ---
Patient report was received by KENYETTA Larson. Questions answered & plan of care reviewed.
[2022-04-22 06:41] LABS: ALANINE AMINOTRANSFERASE 23 U/L (12-78); ALBUMIN 2.3 G/DL (3.4-5.0); ALBUMIN/GLOBULIN RATIO 0.6 (1.1-1.5); ALKALINE PHOSPHATASE 53 IU/L (46-116); ANION GAP 10 (8-16); ASPARTATE AMINO TRANSFERASE 25 U/L (10-37); BILIRUBIN,TOTAL 0.2 MG/DL (0.1-1.0); BLOOD UREA NITROGEN 21 MG/DL (7-18); BUN/CREATININE RATIO 12.4 (6.6-38.0); CALCIUM 8.1 MG/DL (8.5-10.1); CHLORIDE 112 MMOL/L (99-107); GLUCOSE 134 MG/DL (70-104); POTASSIUM 4.1 MMOL/L (3.5-5.1); SODIUM 146 MMOL/L (135-145); TOTAL CARBON DIOXIDE 23.8 MMOL/L (24-32); TOTAL PROTEIN 5.9 G/DL (6.4-8.2); eGFR 29 ML/MIN
[2022-04-22] MEDS: sulfamethoxazole/trimethoprim DS (800/160mg) tablet PO SCH (07:09)
[2022-04-22] MEDS: QUEtiapine 25mg tablet PO SCH (07:10)
[2022-04-22] MEDS: nitrofurantoin macrocrystal 50mg capsule PO SCH (07:10)
[2022-04-22] MEDS: pantoprazole 40mg Tablet.DR PO SCH (07:10)
[2022-04-22] MEDS: docusate sod 100mg capsule PO SCH (07:10)
[2022-04-22] MEDS: carvedilol 6.25mg tablet PO SCH (07:10)
[2022-04-22 07:11] VITALS: BP_SYST 146
[2022-04-22] MEDS: amLODIPine 5mg tablet PO SCH (07:11)
[2022-04-22] MEDS: heparin, porcine 5000 units/ml vial SQ SCH (07:12)
[2022-04-22] MEDS: insulin Lispro (HumaLOG) vial - multi-dose SQ SCH ×2 (08:43→13:52)
--- NOTE | 2022-04-22 10:43 | NUR ---
REVIEWED NATIONAL SALES ASSOCIATE PHYSICAL ASSESSMENT AND MADE SOME CHANGES AND I AGREE W/PHYSICAL ASSESSMENT OF PATIENT AFTER I MADE CHANGES
[2022-04-22] MEDS ORDERED: SULF1TAB45 PO (11:45)
--- NOTE | 2022-04-22 16:57 | NUR ---
pt d/c to [facility] with all belongings in wheelchair accompanied by [facility] personnel
--- NOTE | 2022-04-22 17:16 | NUR ---
Spoke to Radha from [facility] and was informed patient received medication from [facility] phone number [phone] fax: [phone]. Medication was called in to [facility] and spoke with Pharmacist (Jeffrey). Radha from [facility] was also called and informed of medication being called in to [facility].
[2022-04-22] MEDS ORDERED: sulfamethoxazole/trimethoprim SS (400mg/80mg) tab (single-strength) PO SCH (20:00)
[2022-04-23] MEDS ORDERED: sulfamethoxazole/trimethoprim DS (800/160mg) tablet PO SCH (08:00)
== END 2022-04-22 16:55 | disposition home health service (06) | DRG 640 ==
LOC: ER 21:23 → ED HOLD 04-17 01:59 → ORTHO 4S 04-17 07:05
PROVIDERS: ADMIT Internal Medicine; ATTEND Internal Medicine
DX: E86.0 Dehydration (principal); N17.0 Acute kidney failure with tubular necrosis; Z16.24 Resistance to multiple antibiotics; N13.6 Pyonephrosis; E87.1 Hypo-osmolality and hyponatremia; E11.9 Type 2 diabetes mellitus without complications; F03.90 Unspecified dementia, unspecified severity, without behavioral disturbance, psychotic disturbance, mood disturbance, and anxiety; B96.20 Unspecified Escherichia coli [E. coli] as the cause of diseases classified elsewhere; Z60.2 Problems related to living alone; R31.9 Hematuria, unspecified; E78.5 Hyperlipidemia, unspecified; I10 Essential (primary) hypertension; R91.1 Solitary pulmonary nodule; D64.9 Anemia, unspecified; I25.10 Atherosclerotic heart disease of native coronary artery without angina pectoris; K21.9 Gastro-esophageal reflux disease without esophagitis; R32 Unspecified urinary incontinence; T50.1X5A Adverse effect of loop [high-ceiling] diuretics, initial encounter; Z79.84 Long term (current) use of oral hypoglycemic drugs; I25.2 Old myocardial infarction; Z86.73 Personal history of transient ischemic attack (TIA), and cerebral infarction without residual deficits; Z90.710 Acquired absence of both cervix and uterus; Z95.1 Presence of aortocoronary bypass graft; Z87.442 Personal history of urinary calculi; Z79.899 Other long term (current) drug therapy; Q63.1 Lobulated, fused and horseshoe kidney; Y92.89 Other specified places as the place of occurrence of the external cause
CPT/HCPCS: 36415; 74176; 80053; 81001; 82948; 83036; 83540; 83550; 83605; 84145; 85025; 87040; 87077; 87081; 87088; 87186; 92508; 92616; 96365; 99285; A4353; G0378; J0696; J1644; J1815; J3490; J7030; J7070